=== PATIENT | female | born 1930 | race Caucasian/White ===

== ENCOUNTER 2016-11-21 10:03 | Emergency (ER) | payer MEDICARE, OTHER ==
[2016-11-21] MEDS ORDERED: Sodium Chloride 0.9% 10 ML Syringe FLUSH PRN (10:34)
[2016-11-21] MEDS ORDERED: Ondansetron 4 MG/2 ML SDV IVPUSH ONE (10:35)
[2016-11-21] MEDS ORDERED: Ondansetron 4 MG Tab.DIS PO ONE (10:46)
[2016-11-21] MEDS ORDERED: Meclizine 25 MG Tab PO ONE (11:09)
[2016-11-21 11:12] LABS: CHLORIDE,CL 104 mmol/L (98-107); SODIUM,NA 140 mmol/L (136-145)
--- NOTE | 2016-11-21 11:15 | EDM.PDOC ---
ED HPI GENERAL MEDICAL PROBLEM - General Chief Complaint: General Stated Complaint: Nausea, vomitting HTN Time Seen by Provider: 11/21/16 10:34 Source of Information: Reports: Patient History Limitations: Reports: No Limitations - History of Present Illness INITIAL COMMENTS - FREE TEXT/NARRATIVE: Patient brought in by EMS after having problems with vertigo and nausea after waking up this morning. Does not describe having similar problems in past. No recent changes in health other than having decreased appetite all day yesterday. Recalls that she had buzzing sound in left ear yesterday, but currently that has resolved. She admits to not eating as much as she usually does. She denies having any other problems yesterday, such as chills, fever, nausea, bowel changes, problems with urination, or URI complaints. Head rotation makes the dizziness feel worse. Had emesis once she came to the ER. Greenish in color, small in amount. Continues to deny having any other symptoms. Says her vertigo feels better at this point. She did take her BP at her apartment and noted it was more elevated than usual. - Related Data Allergies Allergy/AdvReac Type Severity Reaction Status Date / Time cerivastatin sodium Allergy Other Verified 11/21/16 10:34 [From [facility]] Penicillins Allergy unknown Verified 11/21/16 10:34 Sulfa (Sulfonamide Allergy Other Verified 11/21/16 10:34 Antibiotics) Home Meds: Home Meds Cholecalciferol (Vitamin D3) [Vitamin D3] 2,000 unit PO DAILY #0 02/17/14 [Rx] Hydroxychloroquine [Plaquenil] 200 mg PO DAILY #0 02/17/14 [Rx] Sertraline [Zoloft] 25 mg PO DAILY #0 02/17/14 [Rx] Albuterol/Ipratropium [DuoNeb 3.0-0.5 MG/3 ML] 3 ml PO TID 03/22/15 [History] Budesonide [Pulmicort] 0.5 mg IH BID #30 neb 03/22/15 [Rx] Levothyroxine Sodium [Levoxyl] 175 mcg PO DAILY 03/22/15 [History] Tolterodine [Detrol LA 24 Hr] 4 mg PO DAILY 03/22/15 [History] Aspirin 325 mg PO BID 11/21/16 [History] Meclizine [Antivert] 25 mg PO Q6H PRN #20 tablet 11/21/16 [Rx] Past Medical History HEENT History: Reports: Impaired Vision Other HEENT History: Wears glasses Cardiovascular History: Reports: Hypertension Respiratory History: Reports: COPD Gastrointestinal History: Reports: Other (See Below) Genitourinary History: Reports: Urinary Incontinence Musculoskeletal History: Reports: Back Pain, Chronic, Gout, Osteoarthritis, Osteoporosis Hematologic History: Reports: Blood Transfusion(s) - Past Surgical History HEENT Surgical History: Reports: Oral Surgery GI Surgical History: Reports: Appendectomy, Cholecystectomy, Colonoscopy, EGD, Hernia Repair/Other Female Surgical History: Reports: D&C, Salpingo-Oophorectomy, Tubal Ligation Social & Family History - Tobacco Use Smoking Status *Q: Former Smoker Used Tobacco, but Quit: Yes Month Tobacco Last Used: Second Hand Smoke Exposure: No - Caffeine Use Caffeine Use: Reports: Coffee - Alcohol Use Days Per Week of Alcohol Use: 0 Number of Drinks Per Day: 1 (Very occasional beer) Total Drinks Per Week: 0 - Recreational Drug Use Recreational Drug Use: No Drug Use in Last 12 Months: No Recreational Drug Last Use: 2 Cups of coffee per day and occasional soda - Living Situation & Occupation Living situation: Reports: , Alone Occupation: Other ED ROS GENERAL - Review of Systems Review Of Systems: See Below Constitutional: Reports: Decreased Appetite. Denies: Fever, Chills, Malaise, Weakness, Fatigue, Night Sweats, Diaphoresis HEENT: Reports: No Symptoms. Denies: Rhinitis, Throat Pain Respiratory: Reports: No Symptoms. Denies: Shortness of Breath, Cough Cardiovascular: Reports: Blood Pressure Problem, Dyspnea on Exertion (Has some baseline SOB with activity and this has not changed.), Lightheadedness. Denies : Chest Pain, Edema GI/Abdominal: Reports: Decreased Appetite, Nausea, Vomiting. Denies: Abdominal Pain, Black Stool, Bloody Stool, Constipation, Diarrhea, Hematemesis, Hematochezia : Reports: No Symptoms Musculoskeletal: Reports: No Symptoms (no acute changes) Skin: Reports: No Symptoms Neurological: Reports: Dizziness, Gait Disturbance (Dizzy with activity). Denies: Confusion, Headache, Numbness, Paresthesia, Syncope, Tingling, Trouble Speaking, Weakness Psychiatric: Reports: No Symptoms Hematologic/Lymphatic: Reports: No Symptoms ED EXAM, GENERAL - Physical Exam Exam: See Below Exam Limited By: No Limitations General Appearance: Alert, WD/WN, No Apparent Distress, Obese Eye Exam: Bilateral Eye: EOMI, PERRL, Other (absence of nystagmus) Ears: Normal External Exam, Normal Canal, Normal TMs, Hearing Loss (has hearing aid) Nose: Normal Inspection Throat/Mouth: Normal Inspection, Normal Lips, Normal Gums, Normal Oropharynx, Normal Voice, No Airway Compromise, Other (has dentures) Head: Atraumatic, Normocephalic Neck: Normal Inspection, Supple, Non-Tender, Full Range of Motion. No: Lymphadenopathy (L), Lymphadenopathy (R) Respiratory/Chest: No Respiratory Distress, Lungs Clear, Normal Breath Sounds, No Accessory Muscle Use, Chest Non-Tender Cardiovascular: Normal Peripheral Pulses, Regular Rate, Rhythm, No Edema, No Murmur Peripheral Pulses: 2+: Radial (L), Radial (R), Dorsalis Pedis (L), Dorsalis Pedis (R) GI/Abdominal: Normal Bowel Sounds, Soft, Non-Tender, No Distention (Female) Exam: Deferred Rectal (Female) Exam: Deferred Back Exam: Normal Inspection. No: CVA Tenderness (L), CVA Tenderness (R) Extremities: Normal Range of Motion, Non-Tender, Normal Capillary Refill, Pedal Edema (very mild, bilaterally) Neurological: Alert, Oriented, CN II-XII Intact, Normal Cognition, No Motor/ Sensory Deficits Psychiatric: Normal Affect, Normal Mood Skin Exam: Warm, Dry, Intact, Normal Color, No Rash Course - Vital Signs Last Recorded V/S: Last Vital Signs Temp 36.9 C 11/21/16 10:06 Pulse 68 11/21/16 11:55 Resp 18 11/21/16 11:55 BP 157/56 H 11/21/16 11:55 Pulse Ox 98 11/21/16 11:55 - Orders/Labs/Meds Orders: Active Orders 24 hr Category Date Time Status Sodium Chloride 0.9% [Saline Flush] Med 11/21/16 10:34 Active 10 ml FLUSH ASDIRECTED PRN Saline Lock Insert [OM.PC] Stat Oth 11/21/16 10:34 Ordered Medication Orders Sodium Chloride (Saline Flush) 10 ml FLUSH ASDIRECTED PRN PRN Reason: Keep Vein Open Labs: Laboratory Tests 11/21/16 11/21/16 11/21/16 Range/Units 10:34 10:55 11:05 WBC 6.4 (4.0-10.2) K/uL RBC 4.24 (3.77-5.09) M/uL Hgb 12.8 (11.7-15.5) g/dL Hct 38.1 (34.0-46.0) % MCV 89.9 (84.0-98.0) fL MCH 30.2 (28.2-33.3) pg MCHC 33.6 (31.7-36.0) g/dL RDW 12.9 (11.2-14.1) % Plt Count 261 D (150-350) K/uL Neut % (Auto) 66.3 (45.0-80.0) % Lymph % (Auto) 23.5 (10.0-50.0) % [place] % (Auto) 8.0 (2.0-14.0) % Eos % (Auto) 2.0 (0.0-5.0) % Baso % (Auto) 0.2 (0.0-2.0) % Neut # (Auto) 4.21 (1.40-7.00) K/uL Lymph # (Auto) 1.49 (0.50-3.50) K/uL [place] # (Auto) 0.51 (0.00-1.00) K/uL Eos # (Auto) 0.13 (0.00-0.50) K/uL Baso # (Auto) 0.01 (0.00-0.20) K/uL Sodium 140 (136-145) mmol/L Potassium 3.4 L (3.5-5.1) mmol/L Chloride 104 (98-107) mmol/L Carbon Dioxide 25.9 (21.0-32.0) mmol/L BUN 15 (7-18) mg/dL Creatinine 1.12 (0.51-1.17) mg/dL Est Cr Clr Drug Dosing TNP Estimated GFR (MDRD) 46 mL/min Glucose 149 H (74-106) mg/dL Calcium 8.6 (8.5-10.1) mg/dL Total Bilirubin 0.5 (0.2-1.0) mg/dL AST 18 (15-37) U/L ALT 14 (12-78) U/L Alkaline Phosphatase 54 (46-116) IU/L Total Protein 6.7 (6.4-8.2) g/dL Albumin 3.2 L (3.4-5.0) g/dL Specimen Type Urinblad Urine Color Yellow Urine Appearance Clear Urine pH 6.5 (5.0-9.0) Ur Specific [place] 1.020 (1.005-1.030) Urine Protein Negative (NEGATIVE) mg/dL Urine Glucose (UA) Negative (NEGATIVE) mg/dL Urine Ketones Negative (NEGATIVE) mg/dL Urine Occult Blood Trace-intact H (NEGATIVE) Urine Nitrite Negative (NEGATIVE) Urine Bilirubin Negative (NEGATIVE) Urine Urobilinogen 0.2 (0.2-1.0) E.U./dL Ur Leukocyte Esterase Negative (NEGATIVE) Urine RBC 0-5 /HPF Urine WBC 0-5 /HPF Ur Epithelial Cells Moderate H /LPF Urine Bacteria Rare (NONE TO FEW) /HPF Meds: Medications Generic Name Dose Route Start Last Admin Trade Name Freq PRN Reason Stop Dose Admin Sodium Chloride 10 ml 11/21/16 10:34 Saline Flush FLUSH ASDIRECTED PRN Keep Vein Open Discontinued Medications Generic Name Dose Route Start Last Admin Trade Name Freq PRN Reason Stop Dose Admin Meclizine HCl 25 mg 11/21/16 11:09 11/21/16 11:16 Antivert PO 11/21/16 11:10 25 mg ONETIME ONE Administration Ondansetron HCl 4 mg 11/21/16 10:35 Zofran IVPUSH 11/21/16 10:36 ONETIME ONE Ondansetron HCl 4 mg 11/21/16 10:46 11/21/16 10:51 Zofran Odt PO 11/21/16 10:47 4 mg ONETIME ONE Administration - Re-Assessments/Exams Free Text/Narrative Re-Assessment/Exam: 11/21/16 13:02 CBC/Chem/UA overall unremarkable. Small amount blood in UA, no white cells. Patient had significant improvement of symptoms while staying in ER. BP improved. She did sleep for awhile. Meclizine given. Able to ambulate well. Had much smaller amount of "spins" when turning her head. No unsteadiness noted. She feels safe going home. At this time suspect acute labrynthitis. Cannot rule out early viral syndrome symptom or other cause however. Patient continues to deny other complaints such as fever/shortness of breath/headache or other pain. Conservative plan at this time including continue Meclizine and observation for symptom changes/new symptoms. Patient knows she is to return to the ER if she has worsening problems. Numerous cautions reviewed prior to discharge. Patient discharged in much improved condition. Departure - Departure Time of Disposition: 12:48 Disposition: Home, Self-Care 01 Condition: Good Clinical Impression: HTN, Benign hypertension Acute labyrinthitis Qualifiers: Laterality: unspecified laterality Qualified Code(s): H83.09 - Labyrinthitis, unspecified ear Clinical Impression: (Ruled Out): Meniere disease - Discharge Information Prescriptions: Meclizine [Antivert] 25 mg PO Q6H PRN #20 tablet PRN Reason: Dizziness Instructions: Labyrinthitis, [id number] Referrals: [facility] [Primary Care Provider] - Forms: ED Department Discharge Additional Instructions: Take it easy today and tomorrow. Take Meclizine one tablet every 6 hours as needed for lightheadedness. Watch for changes and any new symptom development. Follow up for recheck if you have any worsening problems such as headache, shortness of breath. Follow up at clinic if light-headed feeling has not fully resolved within 3 days. - My Orders Last 24 Hours: My Active Orders 11/21/16 10:34 Sodium Chloride 0.9% [Saline Flush] 10 ml FLUSH ASDIRECTED PRN Saline Lock Insert [OM.PC] Stat - Assessment/Plan Last 24 Hours: My Active Orders 11/21/16 10:34 Sodium Chloride 0.9% [Saline Flush] 10 ml FLUSH ASDIRECTED PRN Saline Lock Insert [OM.PC] Stat
[2016-11-21] MEDS ORDERED: Potassium Chloride 10 MEQ Tab.ER PO ONE (12:58)
[2016-11-21 14:01] VITALS: BP 158/60
== END 2016-11-21 13:20 | disposition home or self-care (01) ==
LOC: LL.ED 10:03
DX: I10 Essential (primary) hypertension (principal); H83.09 Labyrinthitis, unspecified ear; M19.90 Unspecified osteoarthritis, unspecified site; M81.0 Age-related osteoporosis without current pathological fracture; J44.9 Chronic obstructive pulmonary disease, unspecified; Z88.0 Allergy status to penicillin; Z88.2 Allergy status to sulfonamides; Z88.8 Allergy status to other drugs, medicaments and biological substances; Z90.49 Acquired absence of other specified parts of digestive tract; Z79.82 Long term (current) use of aspirin; Z79.899 Other long term (current) drug therapy; Z90.89 Acquired absence of other organs; Z98.51 Tubal ligation status; Z87.891 Personal history of nicotine dependence
CPT/HCPCS: 36415; 80053; 81001; 85025; 99283; 99284; A9270

== ENCOUNTER 2018-03-12 14:49 | Inpatient (IN) | payer MEDICARE, OTHER ==
--- NOTE | 2018-03-12 15:27 | EDM.PDOC ---
ED HPI GENERAL MEDICAL PROBLEM - General Chief Complaint: General Stated Complaint: left sided chest pain,SOB Time Seen by Provider: 03/12/18 14:55 Source of Information: Reports: Patient, Family History Limitations: Reports: No Limitations - History of Present Illness INITIAL COMMENTS - FREE TEXT/NARRATIVE: Patient sent here from [facility] for evaluation of 6-8 week history of fatigue, low energy, shortness of breath, and intermittent left sided chest pain. No labs performed at clinic. EKG showed mild tachycardia of 108 with no obvious acute ST elevation or depression. Patient describes that pain as being in left side when present. Points to left lateral chest area as site of discomfort. Nothing specific triggers/improves pain when present. - Related Data Allergies Allergy/AdvReac Type Severity Reaction Status Date / Time cerivastatin sodium Allergy Other Verified 03/12/18 15:22 [From [employer]col] Dairy Products Allergy Other Verified 03/12/18 16:47 Penicillins Allergy unknown Verified 03/12/18 15:22 Sulfa (Sulfonamide Allergy Other Verified 03/12/18 15:22 Antibiotics) Home Meds: Home Meds Cholecalciferol (Vitamin D3) [Vitamin D3] 2,000 unit PO DAILY #0 02/17/14 [Rx] Hydroxychloroquine [Plaquenil] 200 mg PO DAILY #0 02/17/14 [Rx] Sertraline [Zoloft] 25 mg PO DAILY #0 02/17/14 [Rx] Budesonide [Pulmicort] 0.5 mg IH BID #30 neb 03/22/15 [Rx] Tolterodine [Detrol LA 24 Hr] 4 mg PO DAILY 03/22/15 [History] Levothyroxine Sodium [Synthroid] 150 mcg PO DAILY 01/18/18 [History] Albuterol Sulfate [Proair Respiclick] 2 puff IH Q4HR PRN 03/12/18 [History] Albuterol/Ipratropium [DuoNeb 3.0-0.5 MG/3 ML] 3 ml INH Q6HR PRN 03/12/18 [ History] Aspirin [Children's Aspirin] 81 mg PO DAILY 03/12/18 [History] Ipratropium/Albuterol Sulfate [Combivent Respimat Inhal [place]] 1 puff IH ASDIRECTED PRN 03/12/18 [History] Magnesium Oxide [Magnesium] 500 mg PO DAILY 03/12/18 [History] Past Medical History HEENT History: Reports: Impaired Vision Other HEENT History: Wears glasses Cardiovascular History: Reports: Hypertension Respiratory History: Reports: COPD Gastrointestinal History: Reports: Other (See Below) Genitourinary History: Reports: Urinary Incontinence Musculoskeletal History: Reports: Back Pain, Chronic, Gout, Osteoarthritis, Osteoporosis Psychiatric History: Reports: Depression Endocrine/Metabolic History: Reports: Hypothyroidism, Obesity/BMI 30+ Hematologic History: Reports: Blood Transfusion(s) - Past Surgical History HEENT Surgical History: Reports: Oral Surgery GI Surgical History: Reports: Appendectomy, Cholecystectomy, Colonoscopy, EGD, Hernia Repair/Other Female Surgical History: Reports: D&C, Salpingo-Oophorectomy, Tubal Ligation Social & Family History - Tobacco Use Smoking Status *Q: Former Smoker (quit over 50 years ago) - Caffeine Use Caffeine Use: Reports: Coffee - Living Situation & Occupation Living situation: Reports: , Alone Occupation: Other ED ROS GENERAL - Review of Systems Review Of Systems: See Below Constitutional: Reports: Weakness, Fatigue, Weight Loss. Denies: Fever, Chills , Malaise, Night Sweats, Diaphoresis, Decreased Appetite, Weight Gain HEENT: Reports: Glasses. Denies: Ear Pain, Eye Pain, Sinus Problem, Vision Change Respiratory: Reports: Shortness of Breath. Denies: Wheezing, Pleuritic Chest Pain, Cough, Sputum, Hemoptysis Cardiovascular: Reports: Chest Pain (left lateral chest), Dyspnea on Exertion, Edema. Denies: Lightheadedness, Orthopnea, Palpitations, Syncope GI/Abdominal: Reports: Diarrhea (this morning), Other (heartburn this morning, single emesis this morning). Denies: Abdominal Pain, Black Stool, Bloody Stool , Distension : Reports: Incontinence Musculoskeletal: Reports: No Symptoms (no change from baseline chronic pain) Skin: Reports: No Symptoms Neurological: Reports: Weakness (generalized). Denies: Confusion, Dizziness, Headache, Trouble Speaking, Change in Speech, Gait Disturbance Psychiatric: Reports: No Symptoms Hematologic/Lymphatic: Reports: No Symptoms ED EXAM, GENERAL - Physical Exam Exam: See Below Exam Limited By: No Limitations General Appearance: Alert, No Apparent Distress, Obese Eye Exam: Bilateral Eye: EOMI, PERRL Ears: Normal External Exam, Normal Canal Nose: No: Nasal Deformity, Nasal Swelling, Nasal Drainage Throat/Mouth: Normal Lips, Normal Voice, No Airway Compromise Head: Atraumatic, Normocephalic Neck: Normal Inspection, Supple, Non-Tender, Full Range of Motion Respiratory/Chest: No Respiratory Distress, No Accessory Muscle Use, Chest Non- Tender, Wheezing (mild, scattered). No: Crackles, Rales, Rhonchi Cardiovascular: Normal Peripheral Pulses, Regular Rate, Rhythm, No Murmur GI/Abdominal: Soft, Non-Tender, No Distention (Female) Exam: Deferred Rectal (Female) Exam: Deferred Back Exam: Normal Inspection Extremities: Normal Range of Motion, Pedal Edema. No: Mary's Sign, Leg Pain, Increased Warmth, Mottled, Pallor, Redness Neurological: Alert, Oriented, Normal Cognition, No Motor/Sensory Deficits Psychiatric: Normal Affect, Normal Mood Skin Exam: Warm, Dry, Intact, Normal Color EKG INTERPRETATION EKG Date: 03/12/18 Time: 14:58 Rhythm: NSR Rate (Beats/Min): 88 [place]: Normal P-Wave: Present QRS: Normal ST-T: Other (questionable ST depression lateral leads, 2, 3 however similar morphology noted on EKG from 2016) QT: Normal Comparison: No Change Course - Vital Signs Last Recorded V/S: Last Vital Signs Temp 36.7 C 03/12/18 16:11 Pulse 94 03/12/18 18:30 Resp 23 H 03/12/18 18:30 BP 142/54 H 03/12/18 18:30 Pulse Ox 94 L 03/12/18 18:30 - Orders/Labs/Meds Orders: Active Orders 24 hr Category Date Time Status Communication Order [RC] ROUTINE Care 03/12/18 15:41 Active EKG Documentation Completion [RC] ASDIRECTED Care 03/12/18 14:54 Active Chest 2V [CR] Stat Exams 03/12/18 15:27 Taken PE Chest [Ang Chest] [CT] Stat Exams 03/12/18 16:12 Taken CK W CKMB [CHEM] Stat Lab 03/12/18 20:34 Ordered TROPONIN I [CHEM] Stat Lab 03/12/18 20:33 Ordered UA W/MICROSCOPIC [URIN] Stat Lab 03/12/18 15:21 Ordered Labs: Laboratory Tests 01/09/2103/12/18 03/12/18 Range/Units 15:00 15:05 15:05 WBC 7.9 (4.0-10.2) K/uL RBC 4.09 (3.77-5.09) M/uL Hgb 12.6 (11.7-15.5) g/dL Hct 37.5 (34.0-46.0) % MCV 91.7 (84.0-98.0) fL MCH 30.8 (28.2-33.3) pg MCHC 33.6 (31.7-36.0) g/dL RDW 13.5 (11.2-14.1) % Plt Count 314 (150-350) K/uL Neut % (Auto) 77.0 (45.0-80.0) % Lymph % (Auto) 14.5 (10.0-50.0) % [place] % (Auto) 7.9 (2.0-14.0) % Eos % (Auto) 0.3 (0.0-5.0) % Baso % (Auto) 0.3 (0.0-2.0) % Neut # (Auto) 6.07 (1.40-7.00) K/uL Lymph # (Auto) 1.14 (0.50-3.50) K/uL [place] # (Auto) 0.62 (0.00-1.00) K/uL Eos # (Auto) 0.02 (0.00-0.50) K/uL Baso # (Auto) 0.02 (0.00-0.20) K/uL PT 11.4 (9.5-12.0) SEC INR 1.1 D-Dimer, Quantitative 449 H (0-400) ng/mL Sodium (136-145) mmol/L Potassium (3.5-5.1) mmol/L Chloride (98-107) mmol/L Carbon Dioxide (21.0-32.0) mmol/L BUN (7-18) mg/dL Creatinine (0.51-1.17) mg/dL Est Cr Clr Drug Dosing Estimated GFR (MDRD) mL/min Glucose (74-106) mg/dL Calcium (8.5-10.1) mg/dL Magnesium (1.8-2.4) mg/dL Total Bilirubin (0.2-1.0) mg/dL AST (15-37) U/L ALT (12-78) U/L Alkaline Phosphatase (46-116) IU/L Creatine Kinase (26-308) U/L Creatine Kinase Index (0.0-2.5) % CK-MB (CK-2) (0.00-3.60) ng/mL Troponin I (0.000-0.056) ng/mL NT-Pro-B Natriuret Pep (0-125) pg/mL Total Protein (6.4-8.2) g/dL Albumin (3.4-5.0) g/dL Vitamin D 25-Hydroxy (30-100) ng/mL TSH, Ultra Sensitive (0.358-3.740) mIU/mL 03/12/18 03/12/18 Range/Units 15:05 15:15 WBC (4.0-10.2) K/uL RBC (3.77-5.09) M/uL Hgb (11.7-15.5) g/dL Hct (34.0-46.0) % MCV (84.0-98.0) fL MCH (28.2-33.3) pg MCHC (31.7-36.0) g/dL RDW (11.2-14.1) % Plt Count (150-350) K/uL Neut % (Auto) (45.0-80.0) % Lymph % (Auto) (10.0-50.0) % [place] % (Auto) (2.0-14.0) % Eos % (Auto) (0.0-5.0) % Baso % (Auto) (0.0-2.0) % Neut # (Auto) (1.40-7.00) K/uL Lymph # (Auto) (0.50-3.50) K/uL [place] # (Auto) (0.00-1.00) K/uL Eos # (Auto) (0.00-0.50) K/uL Baso # (Auto) (0.00-0.20) K/uL PT (9.5-12.0) SEC INR D-Dimer, Quantitative (0-400) ng/mL Sodium 140 (136-145) mmol/L Potassium 4.0 (3.5-5.1) mmol/L Chloride 104 (98-107) mmol/L Carbon Dioxide 26.6 (21.0-32.0) mmol/L BUN 17 (7-18) mg/dL Creatinine 1.24 H (0.51-1.17) mg/dL Est Cr Clr Drug Dosing TNP Estimated GFR (MDRD) 41 mL/min Glucose 122 H (74-106) mg/dL Calcium 8.4 L (8.5-10.1) mg/dL Magnesium 1.3 L (1.8-2.4) mg/dL Total Bilirubin 0.2 (0.2-1.0) mg/dL AST 19 (15-37) U/L ALT 18 (12-78) U/L Alkaline Phosphatase 54 (46-116) IU/L Creatine Kinase 90 (26-308) U/L Creatine Kinase Index 1.2 (0.0-2.5) % CK-MB (CK-2) 1.10 (0.00-3.60) ng/mL Troponin I 0.001 (0.000-0.056) ng/mL NT-Pro-B Natriuret Pep 625 H (0-125) pg/mL Total Protein 6.7 (6.4-8.2) g/dL Albumin 3.2 L (3.4-5.0) g/dL Vitamin D 25-Hydroxy 54.4 (30-100) ng/mL TSH, Ultra Sensitive 0.264 L (0.358-3.740) mIU/mL Meds: Medications Discontinued Medications Generic Name Dose Route Start Last Admin Trade Name [facility] PRN Reason Stop Dose Admin Sodium Chloride 500 mls @ 250 mls/hr 03/12/18 16:13 03/12/18 17:12 Normal Saline IV 03/12/18 18:12 250 mls/hr ONETIME ONE Administration Iopamidol 100 ml 03/12/18 16:18 03/12/18 17:11 Isovue-370 (76%) IVPUSH 03/12/18 16:19 100 ml ONETIME ONE Administration Magnesium Sulfate/Dextrose 1 gm 03/12/18 16:13 03/12/18 16:52 Magnesium 1 Gm In D5w 100 Ml IV 03/12/18 16:14 1 gm NOW ONE Administration - Radiology Interpretation Free Text/Narrative:: Chest xray shows no acute changes. Hyperinflation/COPD present. Similar pattern left lower lung noted on previous chest xrays that Radiology feels reflects scarring. CT Results Date: 03/12/18 CT Results Time: 18:50 (No evidence of PE noted) - Re-Assessments/Exams Free Text/Narrative Re-Assessment/Exam: 03/12/18 15:58 Patient ambulated while waiting for lab work results. Able to walk once up and down garber while maintaining O2 sats on room air around 95%. However she was noted to become increasingly tachycardic with heart rate gradually reaching 139 and respiratory rate maxing around 40 bpm. Free Text/Narrative Re-Assessment/Exam: 03/12/18 20:14 No evidence of PE noted. Significant amount of time between study and results due to extensive technical difficulties getting films transmitted to [place] for Radiology review. Overall unremarkable workup except for mild elevation of BNP and DDimer, and low Mg. Glucose mildly elevated. TSH slightly low. Plan at this time is to admit. Will perform serial cardiac enzymes, telemetry. Will treat for CHF and see if activity tolerance improves. PT and OT to evaluate patient. Departure - Departure Time of Disposition: 20:36 Disposition: Admitted As Inpatient 68 Condition: Fair Clinical Impression: Hypomagnesemia, Muscle weakness Chest pain Qualifiers: Chest pain type: unspecified Qualified Code(s): R07.9 - Chest pain, unspecified - Discharge Information *PRESCRIPTION DRUG MONITORING PROGRAM REVIEWED*: Not Applicable *COPY OF PRESCRIPTION DRUG MONITORING REPORT IN PATIENT QUENTIN: Not Applicable Referrals: Arlette Hines PA-C [Primary Care Provider] - Forms: ED Department Discharge - Problem List & Annotations (1) Chest pain SNOMED Code(s): 10948860 Code(s): R07.9 - CHEST PAIN, UNSPECIFIED Status: Acute Priority: High Current Visit: Yes Annotation/Comment:: Intermittent left sided chest pain. Currently pain free. Pain present earlier this morning. No radiation of pain. No accompanying nausea/sweating. Is chronically SOB and that was unchanged. Plan is to perform serial cardiac enzymes, EKGs, and monitor patient on telemetry. Qualifiers: Chest pain type: unspecified Qualified Code(s): R07.9 - Chest pain, unspecified (2) CHF (congestive heart failure) SNOMED Code(s): 57401124 Code(s): I50.9 - HEART FAILURE, UNSPECIFIED Status: Chronic Priority: Medium Current Visit: Yes Annotation/Comment:: Mild elevation of proBNP noted. No previous diagnosis of CHF noted. Cardiac Echo 12/20 showed 66% ejection fraction. No pulmonary congestion noted on plain chest xray/PE study. Will add Lasix to treatment regimen and monitor for any change in activity tolerance (3) D-dimer, elevated SNOMED Code(s): 936815034 Code(s): R79.89 - OTHER SPECIFIED ABNORMAL FINDINGS OF BLOOD CHEMISTRY Status: Acute Priority: High Current Visit: Yes Annotation/Comment:: Mild elevation of DDimer. PE study ordered in ER. Negative for PE or other acute signficant changes per Radiology. (4) Impaired mobility and ADLs SNOMED Code(s): 478654212, 188272611, 372079159 Code(s): Z74.09 - OTHER REDUCED MOBILITY Status: Chronic Priority: High Current Visit: Yes Annotation/Comment:: 6-8 weeks of decline in ability to perform ADLs. Needs assistance with almost "everything" per son. Pt gets tired easily. Family member mentioned that patient recently experienced loss of a son and wonders if this is a reaction by the patient to son's . PT/OT to assess patient. May need to consider Swing Bed or residential care placement depending on patient's course. (5) Hypomagnesemia SNOMED Code(s): 277288193 Code(s): E83.42 - HYPOMAGNESEMIA Status: Acute Priority: High Current Visit: Yes Annotation/Comment:: Initiate Mg supplementation (6) Muscle weakness SNOMED Code(s): 93198163 Code(s): M62.81 - MUSCLE WEAKNESS (GENERALIZED) Status: Chronic Priority : Medium Current Visit: Yes Annotation/Comment:: PT/OT will be consulted for evaluation. (7) COPD, Mild chronic obstructive pulmonary disease SNOMED Code(s): 394888395 Code(s): J44.9 - CHRONIC OBSTRUCTIVE PULMONARY DISEASE, UNSPECIFIED Status : Chronic Priority: Medium Current Visit: No Annotation/Comment:: Currently appropriate on room air at this time. Has O2 at home but rarely uses it. Maintained 94-95% sats on room air when ambulating down garber today, however respiratory rate increased from 18 to 40, and heart rate elevated to 130s during this time. Denies acute changes such as cough/worsening respiratory status/mucus production/fever (8) Low back pain SNOMED Code(s): 028062576 Code(s): M54.5 - LOW BACK PAIN Status: Chronic Priority: Low Current Visit: No Annotation/Comment:: stable per patient at this time Qualifiers: Chronicity: chronic Back pain laterality: left Sciatica presence: with sciatica Sciatica laterality: sciatica of left side Qualified Code(s): M54.42 - Lumbago with sciatica, left side; G89.29 - Other chronic pain (9) Diabetes mellitus SNOMED Code(s): 24084908 Code(s): E11.9 - TYPE 2 DIABETES MELLITUS WITHOUT COMPLICATIONS Status: Chronic Priority: Medium Current Visit: No Annotation/Comment:: Diet- controlled with no current medical therapy. (10) HTN, Benign hypertension SNOMED Code(s): 49134818 Code(s): I10 - ESSENTIAL (PRIMARY) HYPERTENSION Status: Chronic Priority : Medium Current Visit: No Annotation/Comment:: Stable by history. BP appropriate at this time. (11) Osteoarthritis SNOMED Code(s): 053459782 Code(s): M19.90 - UNSPECIFIED OSTEOARTHRITIS, UNSPECIFIED SITE Status: Chronic Priority: High Current Visit: No Onset Date: 01/04/14 Annotation /Comment:: Chronic, no acute recent changes - Problem List Review Problem List Initiated/Reviewed/Updated: Yes - My Orders Last 24 Hours: My Active Orders 03/12/18 14:54 EKG Documentation Completion [RC] ASDIRECTED 03/12/18 15:21 UA W/MICROSCOPIC [URIN] Stat 03/12/18 15:27 Chest 2V [CR] Stat 03/12/18 15:41 Communication Order [RC] ROUTINE 03/12/18 16:12 PE Chest [Ang Chest] [CT] Stat 03/12/18 20:33 TROPONIN I [CHEM] Stat 03/12/18 20:34 CK W CKMB [CHEM] Stat - Assessment/Plan Admission H&P: Please use this note as an admission H&P Last 24 Hours: My Active Orders 03/12/18 14:54 EKG Documentation Completion [RC] ASDIRECTED 03/12/18 15:21 UA W/MICROSCOPIC [URIN] Stat 03/12/18 15:27 Chest 2V [CR] Stat 03/12/18 15:41 Communication Order [RC] ROUTINE 03/12/18 16:12 PE Chest [Ang Chest] [CT] Stat 03/12/18 20:33 TROPONIN I [CHEM] Stat 03/12/18 20:34 CK W CKMB [CHEM] Stat Assessment:: As above. Call placed to [facility] and patient reviewed with , hospitalist. It was agreed that there was no obvious cause for patient's decline over the past 6-8 weeks. Recommended stress test and updated cardiac echo to assess heart function given the tachycardia and SOB with ambulation. Also recommended conservative diuresis to see if that would prove beneficial. Cannot rule out behavioral/cognitive component. Plan: as above. Anticipate 3-4 day stay depending on patient's clinical course, with possible need for Swing Bed admission to address deconditioning.
[2018-03-12 16:01] LABS: CHLORIDE,CL 104 mmol/L (98-107); SODIUM,NA 140 mmol/L (136-145)
[2018-03-12] MEDS ORDERED: Sodium Chloride 0.9% 500 ML IV ONE (16:13)
[2018-03-12] MEDS ORDERED: Iopamidol 755 Mg/ML 100 ML Bottle IVPUSH ONE (16:18)
[2018-03-12] MEDS ORDERED: Ondansetron 4 MG Tab.DIS PO PRN (21:33)
[2018-03-12] MEDS ORDERED: Albuterol/Ipratropium 3.0-0.5 MG/3 ML Neb Soln INH PRN (21:37)
[2018-03-12] MEDS ORDERED: Albuterol 8 GM Inhaler INH PRN (21:37)
[2018-03-12] MEDS ORDERED: Albuterol/Ipratropium 4 GM Inhalation Spray INH PRN (21:37)
[2018-03-12] MEDS: Trospium 20 MG Tab PO SCH (23:11)
[2018-03-12] MEDS: Budesonide 0.5 MG/2 ML Neb Susp INH SCH (23:11)
[2018-03-13] MEDS ORDERED: Magnesium Oxide 400 MG Tab PO SCH (08:00)
[2018-03-13] MEDS ORDERED: Sertraline 25 MG Tab PO SCH (08:00)
[2018-03-13] MEDS: Enoxaparin 40 MG/0.4 ML Syringe SUBCUT SCH (08:01)
[2018-03-13] MEDS: Aspirin 81 MG Tab.Chew PO SCH (08:02)
[2018-03-13] MEDS: Hydroxychloroquine 200 MG Tab PO SCH (08:02)
[2018-03-13] MEDS: Levothyroxine 112 MCG Tab PO SCH (08:02)
[2018-03-13] MEDS: Cholecalciferol (Vitamin D3) 1,000 Unit Tab PO SCH (08:02)
[2018-03-13] MEDS: Trospium 20 MG Tab PO SCH ×2 (08:03→17:20)
[2018-03-13] MEDS: Furosemide 20 MG/2 ML VIAL IVPUSH SCH (08:03)
[2018-03-13] MEDS: Budesonide 0.5 MG/2 ML Neb Susp INH SCH ×2 (08:03→17:21)
[2018-03-13] MEDS: Magnesium Oxide 400 MG Tab PO SCH ×2 (08:03→17:21)
[2018-03-13] MEDS ORDERED: Sodium Chloride 0.9% 10 ML Syringe FLUSH PRN (08:04)
--- NOTE | 2018-03-13 16:08 | PCM.PN ---
- General Info Date of Service: 03/13/18 Admission Dx/Problem (Free Text): Patient admitted for evaluation of tachycardia/tachypnea with activity. Low magnesium. Complaint of intermittent left sided chest pain. CHF/COPD. Decreased in overall activity and participation in ADLs for 6+ weeks. Weight loss/poor appetite. Subjective Update: Patient says that overall she feels reasonably well as long as she is able to rest. Continues to have increased SOB/heart rate with any activity, including walking to bathroom. Has not had return of left sided chest pain today. Functional Status: Reports: Pain Controlled, Tolerating Diet, Ambulating, Urinating. Denies: New Symptoms - Review of Systems General: Reports: Weakness, Fatigue, Appetite (poor). Denies: Fever, Chills, Night Sweats HEENT: Denies: Dysphasia, Ear Pain, Headaches, Sinus Congestion, Sore Throat, Visual Changes Pulmonary: Reports: Shortness of Breath. Denies: Pleuritic Chest Pain, Cough, Sputum, Hemoptysis, Wheezing Cardiovascular: Reports: Dyspnea on Exertion. Denies: Chest Pain, Orthopnea, Edema, Lightheadedness Gastrointestinal: Reports: Decreased Appetite. Denies: No Symptoms, Abdominal Pain, Constipation, Diarrhea, Nausea, Vomiting Genitourinary: Reports: No Symptoms Musculoskeletal: Reports: No Symptoms (no acute changes from baseline osteoarthritis) Skin: Reports: No Symptoms Neurological: Reports: Difficulty Walking, Weakness. Denies: Confusion, Dizziness, Headache, Numbness, Syncope, Change in Speech, Gait Disturbance Psychiatric: Reports: Depression (patient admits to feeling sad some of the time ) - Patient Data Vitals - Most Recent: Last Vital Signs Temp 36.6 C 03/13/18 12:25 Pulse 101 H 03/13/18 12:25 Resp 20 03/13/18 12:25 BP 140/79 03/13/18 12:25 Pulse Ox 95 03/13/18 12:25 Weight - Most Recent: 77.474 kg I&O - Last 24 Hours: Intake & Output 03/13/18 03/13/18 03/13/18 06:59 14:59 22:59 Intake Total 150 220 Output Total 150 100 100 Balance 0 120 -100 Lab Results Last 24 Hours: Laboratory Results - last 24 hr 03/12/18 03/12/18 03/12/18 Range/Units 15:05 15:15 20:33 Sodium 140 (136-145) mmol/L Potassium 4.0 (3.5-5.1) mmol/L Chloride 104 (98-107) mmol/L Carbon Dioxide 26.6 (21.0-32.0) mmol/L BUN 17 (7-18) mg/dL Creatinine 1.24 H (0.51-1.17) mg/dL Est Cr Clr Drug Dosing TNP Estimated GFR (MDRD) 41 mL/min Glucose 122 H (74-106) mg/dL POC Glucose (65-110) mg/dl Calcium 8.4 L (8.5-10.1) mg/dL Magnesium 1.3 L (1.8-2.4) mg/dL Total Bilirubin 0.2 (0.2-1.0) mg/dL AST 19 (15-37) U/L ALT 18 (12-78) U/L Alkaline Phosphatase 54 (46-116) IU/L Creatine Kinase 90 56 (26-308) U/L Creatine Kinase Index 1.2 1.8 (0.0-2.5) % CK-MB (CK-2) 1.10 1.00 (0.00-3.60) ng/mL Troponin I 0.001 0.001 (0.000-0.056) ng/mL NT-Pro-B Natriuret Pep 625 H (0-125) pg/mL Total Protein 6.7 (6.4-8.2) g/dL Albumin 3.2 L (3.4-5.0) g/dL Vitamin D 25-Hydroxy 54.4 (30-100) ng/mL TSH, Ultra Sensitive 0.264 L (0.358-3.740) mIU/mL Specimen Type Urine Color Urine Appearance Urine pH (5.0-9.0) Ur Specific [place] (1.005-1.030) Urine Protein (NEGATIVE) mg/dL Urine Glucose (UA) (NEGATIVE) mg/dL Urine Ketones (NEGATIVE) mg/dL Urine Occult Blood (NEGATIVE) Urine Nitrite (NEGATIVE) Urine Bilirubin (NEGATIVE) Urine Urobilinogen (0.2-1.0) E.U./dL Ur Leukocyte Esterase (NEGATIVE) Urine RBC /HPF Urine WBC /HPF Ur Epithelial Cells /LPF Urine Bacteria (NONE TO FEW) /HPF 03/13/18 03/13/18 03/13/18 Range/Units 05:58 07:20 07:24 Sodium (136-145) mmol/L Potassium (3.5-5.1) mmol/L Chloride (98-107) mmol/L Carbon Dioxide (21.0-32.0) mmol/L BUN (7-18) mg/dL Creatinine (0.51-1.17) mg/dL Est Cr Clr Drug Dosing Estimated GFR (MDRD) mL/min Glucose (74-106) mg/dL POC Glucose 87 (65-110) mg/dl Calcium (8.5-10.1) mg/dL Magnesium 1.8 (1.8-2.4) mg/dL Total Bilirubin (0.2-1.0) mg/dL AST (15-37) U/L ALT (12-78) U/L Alkaline Phosphatase (46-116) IU/L Creatine Kinase 59 (26-308) U/L Creatine Kinase Index 1.5 (0.0-2.5) % CK-MB (CK-2) 0.90 (0.00-3.60) ng/mL Troponin I 0.011 (0.000-0.056) ng/mL NT-Pro-B Natriuret Pep 807 H (0-125) pg/mL Total Protein (6.4-8.2) g/dL Albumin (3.4-5.0) g/dL Vitamin D 25-Hydroxy (30-100) ng/mL TSH, Ultra Sensitive (0.358-3.740) mIU/mL Specimen Type Urinblad Urine Color Yellow Urine Appearance Clear Urine pH 6.5 (5.0-9.0) Ur Specific [place] 1.015 (1.005-1.030) Urine Protein Negative (NEGATIVE) mg/dL Urine Glucose (UA) Negative (NEGATIVE) mg/dL Urine Ketones Negative (NEGATIVE) mg/dL Urine Occult Blood Small H (NEGATIVE) Urine Nitrite Negative (NEGATIVE) Urine Bilirubin Negative (NEGATIVE) Urine Urobilinogen 0.2 (0.2-1.0) E.U./dL Ur Leukocyte Esterase Negative (NEGATIVE) Urine RBC 10-20 H /HPF Urine WBC 0-5 /HPF Ur Epithelial Cells Few /LPF Urine Bacteria Rare (NONE TO FEW) /HPF Med Orders - Current: Current Medications Albuterol (Ventolin Hfa) 0 gm INH Q4HR PRN PRN Reason: Cough Albuterol/Ipratropium (Duoneb 3.0-0.5 Mg/3 Ml) 3 ml INH Q6HR PRN PRN Reason: Shortness of Breath Last Admin: 03/13/18 08:03 Dose: 3 ml Albuterol/Ipratropium (Combivent Respimat) 0 gm INH Q4H PRN PRN Reason: Shortness of Breath Aspirin (Aspirin) 81 mg PO DAILY [facility] Last Admin: 03/13/18 08:02 Dose: 81 mg Budesonide (Pulmicort) 0.5 mg INH BID [facility] Last Admin: 03/13/18 08:03 Dose: 0.5 mg Cholecalciferol (Vitamin D3) 2,000 units PO DAILY [facility] Last Admin: 03/13/18 08:02 Dose: 2,000 units Enoxaparin Sodium (Lovenox) 40 mg SUBCUT DAILY [facility] Last Admin: 03/13/18 08:01 Dose: 40 mg Furosemide (Lasix) 20 mg IVPUSH DAILY [facility] Last Admin: 03/13/18 08:03 Dose: 20 mg Hydroxychloroquine Sulfate (Plaquenil) 200 mg PO DAILY [facility] Last Admin: 03/13/18 08:02 Dose: 200 mg Levothyroxine Sodium (Levothyroxine) 112 mcg PO ACBREAKFAST [facility] Last Admin: 03/13/18 08:02 Dose: 112 mcg Magnesium Oxide (Magnesium Oxide) 400 mg PO BID [facility] Last Admin: 03/13/18 08:03 Dose: 400 mg Ondansetron HCl (Zofran Odt) 4 mg PO Q4H PRN PRN Reason: Nausea/Vomiting Sertraline HCl (Zoloft) 25 mg PO DAILY [facility] Last Admin: 03/13/18 08:01 Dose: 25 mg Sodium Chloride (Saline Flush) 10 ml FLUSH ASDIRECTED PRN PRN Reason: Keep Vein Open Sodium Chloride (Saline Flush) 10 ml FLUSH Q12HR [facility] Trospium (Sanctura) 20 mg PO BID [facility] Last Admin: 03/13/18 08:03 Dose: 20 mg Discontinued Medications Sodium Chloride (Normal Saline) 500 mls @ 250 mls/hr IV ONETIME ONE Stop: 03/12/18 18:12 Last Admin: 03/12/18 17:12 Dose: 250 mls/hr Iopamidol (Isovue-370 (76%)) 100 ml IVPUSH ONETIME ONE Stop: 03/12/18 16:19 Last Admin: 03/12/18 17:11 Dose: 100 ml Magnesium Oxide (Magnesium Oxide) 500 mg PO DAILY [facility] Magnesium Sulfate/Dextrose (Magnesium 1 Gm In D5w 100 Ml) 1 gm IV NOW ONE Stop: 03/12/18 16:14 Last Admin: 03/12/18 16:52 Dose: 1 gm - Exam General: Alert, Oriented, Cooperative, No Acute Distress HEENT: Pupils Equal, Pupils Reactive, EOMI, Mucous Membr. Moist/[place] Neck: Supple Lungs: Clear to Auscultation, Normal Respiratory Effort Cardiovascular: Regular Rate, Regular Rhythm GI/Abdominal Exam: Normal Bowel Sounds, Soft, Non-Tender, No Distention (Female) Exam: Deferred Back Exam: Normal Inspection Extremities: Normal Range of Motion, Non-Tender. No: Increased Warmth, Mottled , Pallor, Redness Peripheral Pulses: 2+: Radial (L), Radial (R) Skin: Warm, Dry Neurological: No New Focal Deficit Psy/Mental Status: Alert, Normal Affect, Normal Mood EKG INTERPRETATION EKG Date: 03/13/18 Time: 07:23 Rhythm: NSR Rate (Beats/Min): 85 [place]: Normal P-Wave: Present QRS: Normal ST-T: Other (flattening of [place] note lateral leads) QT: Normal Comparison: Change From Previous EKG (questionable ST depression noted on yesterday's EKG no longer present.) - Problem List & Annotations (1) Chest pain SNOMED Code(s): 37695103 Code(s): R07.9 - CHEST PAIN, UNSPECIFIED Status: Acute Priority: High Current Visit: Yes Qualifiers: Chest pain type: unspecified Annotation/Comment:: Intermittent left sided chest pain. Currently pain free. No radiation of pain when present. Serial Troponin/CK-MB unremarkable. Cardiac echo scheduled for today. Will need to be scheduled for stress test. (2) CHF (congestive heart failure) SNOMED Code(s): 42122986 Code(s): I50.9 - HEART FAILURE, UNSPECIFIED Status: Chronic Priority: Medium Current Visit: Yes Annotation/Comment:: Mild elevation of proBNP noted. No previous diagnosis of CHF noted. Cardiac Echo 12/20 showed 66% ejection fraction. No pulmonary congestion noted on plain chest xray/PE study. Lasix added to treatment regimen and monitor for any change in activity tolerance. Cardiac echo scheduled for today. Lung sounds improved since addition of lasix. (3) D-dimer, elevated SNOMED Code(s): 084459857 Code(s): R79.89 - OTHER SPECIFIED ABNORMAL FINDINGS OF BLOOD CHEMISTRY Status: Acute Priority: High Current Visit: Yes Annotation/Comment:: Mild elevation of DDimer. PE study ordered in ER. Negative for PE or other acute signficant changes per Radiology. (4) Impaired mobility and ADLs SNOMED Code(s): 653705699, 134232006, 663164889 Code(s): Z74.09 - OTHER REDUCED MOBILITY Status: Chronic Priority: High Current Visit: Yes Annotation/Comment:: 6-8 weeks of decline in ability to perform ADLs. Needs assistance with almost "everything" per son. Pt gets tired easily. Family member mentioned that patient recently experienced loss of a son and wonders if this is a reaction by the patient to son's . Patient admits to feeling depressed at times and agreed that it may be contributing to her decline in interest to eat and participate in activities. PT and OT working with patient. Recommend continued PT/OT after discharge. (5) Hypomagnesemia SNOMED Code(s): 466297512 Code(s): E83.42 - HYPOMAGNESEMIA Status: Acute Priority: High Current Visit: Yes Annotation/Comment:: Initiated Mg supplementation. Level has improved. (6) Muscle weakness SNOMED Code(s): 41009168 Code(s): M62.81 - MUSCLE WEAKNESS (GENERALIZED) Status: Chronic Priority : Medium Current Visit: Yes Annotation/Comment:: PT/OT will be consulted for evaluation. Suspect patient's lack of activity at home is large contributing factor. (7) COPD, Mild chronic obstructive pulmonary disease SNOMED Code(s): 723929998 Code(s): J44.9 - CHRONIC OBSTRUCTIVE PULMONARY DISEASE, UNSPECIFIED Status : Chronic Priority: Medium Current Visit: No Annotation/Comment:: Currently appropriate on room air at this time. Has O2 at home but rarely uses it. 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 Denied acute changes such as cough/worsening respiratory status/mucus production/fever (8) Low back pain SNOMED Code(s): 256050618 Code(s): M54.5 - LOW BACK PAIN Status: Chronic Priority: Low Current Visit: No Qualifiers: Chronicity: chronic Back pain laterality: left Sciatica presence: with sciatica Sciatica laterality: sciatica of left side Qualified Code(s): M54.42 - Lumbago with sciatica, left side; G89.29 - Other chronic pain Annotation/Comment:: stable per patient at this time (9) Diabetes mellitus SNOMED Code(s): 85355390 Code(s): E11.9 - TYPE 2 DIABETES MELLITUS WITHOUT COMPLICATIONS Status: Chronic Priority: Medium Current Visit: No Annotation/Comment:: Diet- controlled with no current medical therapy. (10) HTN, Benign hypertension SNOMED Code(s): 98307158 Code(s): I10 - ESSENTIAL (PRIMARY) HYPERTENSION Status: Chronic Priority : Medium Current Visit: No Annotation/Comment:: Stable by history. BP appropriate at this time. (11) Osteoarthritis SNOMED Code(s): 777160194 Code(s): M19.90 - UNSPECIFIED OSTEOARTHRITIS, UNSPECIFIED SITE Status: Chronic Priority: High Current Visit: No Onset Date: 01/04/14 Annotation /Comment:: Chronic, no acute recent changes (12) Chronic kidney disease stage 2 SNOMED Code(s): 865641382 Code(s): N18.2 - CHRONIC KIDNEY DISEASE, STAGE 2 (MILD) Status: Chronic Priority: Low Current Visit: No Annotation/Comment:: Observe for changes. Lasix added cautiously due to patient's history. Listed as stage 4 by Richards. (13) Variable compliance with medication therapy SNOMED Code(s): 259074898 Code(s): Z91.14 - PATIENT'S OTHER NONCOMPLIANCE WITH MEDICATION REGIMEN Status: Chronic Priority: Low Current Visit: No Annotation/Comment:: Patient has had questionable compliance in past with taking medications. (14) Depression SNOMED Code(s): 09389414 Code(s): F32.9 - MAJOR DEPRESSIVE DISORDER, SINGLE EPISODE, UNSPECIFIED Status: Chronic Priority: Medium Current Visit: Yes Qualifiers: Depression Type: unspecified Qualified Code(s): F32.9 - Major depressive disorder, single episode, unspecified Annotation/Comment:: Has experienced worsening depression since of son. Similar reaction when . Noted by family to "give up". Reflected by poor eating/weight loss/loss of interest in activity. Will increase Zoloft dose. Recommend follow up with psych that has experience with geriatric population. - Problem List Review Problem List Initiated/Reviewed/Updated: Yes - My Orders Last 24 Hours: My Active Orders 03/12/18 15:27 Chest 2V [CR] Stat 03/12/18 15:41 Communication Order [RC] ROUTINE 03/12/18 16:12 PE Chest [Ang Chest] [CT] Stat 03/12/18 21:33 Patient Status [ADT] Routine Blood Glucose Check, Bedside [RC] 07,17 Height and Weight [RC] DAILY May Shower [RC] ASDIRECTED Oxygen Therapy [RC] PRN Up With Assistance [RC] ASDIRECTED VTE/DVT Education [RC] PER UNIT ROUTINE Vital Signs [RC] Q6HR OT Evaluation and Treatment [CONS] Routine PT Evaluation and Treatment [CONS] Routine Ondansetron [Zofran ODT] 4 mg PO Q4H PRN Resuscitation Status Routine 03/12/18 21:35 Cardiac Monitoring [RC] Q2HR Intake and Output [RC] 06,18 Pulse Oximetry [RC] PRN Antiembolic Hose [OM.PC] Per Unit Routine 03/12/18 21:37 Albuterol [Ventolin HFA] 0 gm INH Q4HR PRN Albuterol/Ipratropium [Combivent Respimat] 0 gm INH Q4H PRN Albuterol/Ipratropium [DuoNeb 3.0-0.5 MG/3 ML] 3 ml INH Q6HR PRN 03/12/18 21:45 Budesonide [Pulmicort] 0.5 mg INH BID 03/12/18 22:00 Trospium [Sanctura] 20 mg PO BID 03/13/18 07:30 Levothyroxine 112 mcg PO ACBREAKFAST 03/13/18 08:00 Aspirin 81 mg PO DAILY Cholecalciferol (Vitamin D3) [Vitamin D3] 2,000 units PO DAILY Enoxaparin [Lovenox] 40 mg SUBCUT DAILY Furosemide [Lasix] 20 mg IVPUSH DAILY Hydroxychloroquine [Plaquenil] 200 mg PO DAILY Magnesium Oxide 400 mg PO BID Sertraline [Zoloft] 25 mg PO DAILY 03/13/18 08:04 Sodium Chloride 0.9% [Saline Flush] 10 ml FLUSH ASDIRECTED PRN 03/13/18 10:19 Consult to Dietary [Consult to Plasma Specialist] [CONS] Routine 03/13/18 15:17 Ambulate [RC] PER UNIT ROUTINE 03/13/18 15:47 Echo Comp wo Cont [US] Routine 03/13/18 20:00 Sodium Chloride 0.9% [Saline Flush] 10 ml FLUSH Q12HR 03/13/18 Breakfast [place] [employer] Diet [DIET] 03/14/18 05:11 COMPREHENSIVE METABOLIC PN,CMP [CHEM] AM DD [D-DIMER QUANTITATIVE] [COAG] AM GLYCOSYLATED HEMOGLOBIN,HGBA1C [CHEM] Routine MAGNESIUM [CHEM] AM 03/14/18 05:15 CBC WITH AUTO DIFF [HEME] AM - Assessment Assessment:: as above - Plan Plan:: as above. Anticipate 1-2 additional days of inpatient care while patient's multiple medical problems are evaluated as to how they may be contributing to patient's decline. Patient and family may need to consider long term facility placement if patient is not able to take active interest in self care/ ADLs or is physically unable to perform self care safely.
[2018-03-13] MEDS: Sodium Chloride 0.9% 10 ML Syringe FLUSH SCH (19:24)
[2018-03-14 07:26] LABS: HEMOGLOBIN A1C 5.4 % (4.3-5.7)
[2018-03-14] MEDS ORDERED: Sertraline 25 MG Tab PO SCH (08:00)
[2018-03-14] MEDS: Trospium 20 MG Tab PO SCH ×2 (08:06→18:06)
[2018-03-14] MEDS: Cholecalciferol (Vitamin D3) 1,000 Unit Tab PO SCH (08:06)
[2018-03-14] MEDS: Levothyroxine 112 MCG Tab PO SCH (08:07)
[2018-03-14] MEDS: Hydroxychloroquine 200 MG Tab PO SCH (08:07)
[2018-03-14] MEDS: Magnesium Oxide 400 MG Tab PO SCH ×2 (08:07→18:06)
[2018-03-14] MEDS: Aspirin 81 MG Tab.Chew PO SCH (08:08)
[2018-03-14] MEDS: Enoxaparin 40 MG/0.4 ML Syringe SUBCUT SCH (08:08)
[2018-03-14] MEDS: Sodium Chloride 0.9% 10 ML Syringe FLUSH SCH ×2 (08:11→21:02)
[2018-03-14] MEDS: Budesonide 0.5 MG/2 ML Neb Susp INH SCH ×2 (08:11→18:07)
[2018-03-14] MEDS: Furosemide 20 MG/2 ML VIAL IVPUSH SCH ×2 (08:12→18:08)
--- NOTE | 2018-03-14 09:08 | PCM.PN ---
- General Info Date of Service: 03/14/18 Admission Dx/Problem (Free Text): 1. Tachycardia 2. COPD 3. D Dimer elevation 4. CHF Functional Status: Reports: Pain Controlled, Tolerating Diet, Ambulating, Urinating, New Symptoms. Denies: Incentive Spirometry (Start today) Pain Score: 0 - Review of Systems General: Reports: Weakness (Slowly improving), Fatigue (Slowly improving). Denies: Fever, Malaise, Chills, Night Sweats, Appetite (Adequate) HEENT: Reports: No Symptoms. Denies: Ear Pain, Eye Pain, Headaches, Post Nasal Drip, Sinus Congestion, Sore Throat, Rhinitis, Visual Changes Pulmonary: Reports: Shortness of Breath (Improving), Cough (Very occasional). Denies: Pleuritic Chest Pain, Sputum, Hemoptysis, Wheezing Cardiovascular: Reports: Palpitations, Dyspnea on Exertion. Denies: Chest Pain , Orthopnea, PND, Edema, Lightheadedness Gastrointestinal: Reports: Constipation (Borderline with no bowel movement to this point and patient not wanting any medications). Denies: Abdominal Pain, Decreased Appetite, Diarrhea, Difficulty Swallowing, Flatus, Hematochezia, Melena, Nausea Genitourinary: Reports: No Symptoms. Denies: Dysuria, Frequency, Burning, Urgency, Hematuria, Retention, Flank Pain Musculoskeletal: Reports: Neck Pain (Occasional nonspecific right-sided "pulling " with no true pain) Skin: Reports: No Symptoms. Denies: Diaphoresis Neurological: Reports: Weakness (Slowly improving). Denies: Confusion, Dizziness, Headache, Numbness, Paresthesia, Tingling Psychiatric: Reports: Depression (Stable), Anxiety (Stable). Denies: Agitation , Hallucinations - Patient Data Vitals - Most Recent: Last Vital Signs Temp 36.7 C 03/14/18 06:00 Pulse 76 03/14/18 06:00 Resp 18 03/14/18 06:00 BP 143/63 H 03/14/18 06:00 Pulse Ox 96 03/14/18 06:00 Vital Signs - 24 hr 03/13/18 03/13/18 03/14/18 12:25 17:00 00:00 Temperature [ 36.6 C 36.6 C 37.1 C Temporal] Pulse, 101 H 91 78 Peripheral [ Right Pulse Oximetry] Respiratory 20 18 18 Rate Blood Pressure 150/61 H [Left Upper Arm ] Blood Pressure 140/79 148/92 H [Right Lower Arm] Blood Pressure [Right Upper Arm] O2 Sat by Pulse 95 98 95 Oximetry 03/14/18 06:00 Temperature [ 36.7 C Temporal] Pulse, 76 Peripheral [ Right Pulse Oximetry] Respiratory 18 Rate Blood Pressure [Left Upper Arm ] Blood Pressure [Right Lower Arm] Blood Pressure 143/63 H [Right Upper Arm] O2 Sat by Pulse 96 Oximetry Weight - Most Recent: 77.474 kg I&O - Last 24 Hours: Intake & Output 03/13/18 03/14/18 03/14/18 22:59 06:59 14:59 Intake Total 360 50 Output Total 100 200 Balance 260 -150 Imaging Impressions - Last 24 Hours: [employer] Advisor shows normal sinus rhythm in the 70s with occasional mild sinus arrhythmia, however tachycardia in the 130s with ambulation. Lab Results Last 24 Hours: Laboratory Results - last 24 hr 03/13/18 03/14/18 03/14/18 Range/Units 17:00 06:55 06:55 WBC 5.5 (4.0-10.2) K/uL RBC 3.51 L (3.77-5.09) M/uL Hgb 10.9 L D (11.7-15.5) g/dL Hct 32.4 L (34.0-46.0) % MCV 92.3 (84.0-98.0) fL MCH 31.1 (28.2-33.3) pg MCHC 33.6 (31.7-36.0) g/dL RDW 14.1 (11.2-14.1) % Plt Count 288 (150-350) K/uL Neut % (Auto) 46.0 (45.0-80.0) % Lymph % (Auto) 38.8 (10.0-50.0) % Morgan % (Auto) 12.5 (2.0-14.0) % Eos % (Auto) 2.2 (0.0-5.0) % Baso % (Auto) 0.5 (0.0-2.0) % Neut # (Auto) 2.54 (1.40-7.00) K/uL Lymph # (Auto) 2.14 (0.50-3.50) K/uL Morgan # (Auto) 0.69 (0.00-1.00) K/uL Eos # (Auto) 0.12 (0.00-0.50) K/uL Baso # (Auto) 0.03 (0.00-0.20) K/uL D-Dimer, Quantitative (0-400) ng/mL Sodium 143 (136-145) mmol/L Potassium 3.7 (3.5-5.1) mmol/L Chloride 106 (98-107) mmol/L Carbon Dioxide 28.2 (21.0-32.0) mmol/L BUN 15 (7-18) mg/dL Creatinine 1.24 H (0.51-1.17) mg/dL Est Cr Clr Drug Dosing 23.82 mL/min Estimated GFR (MDRD) 41 mL/min Glucose 82 (74-106) mg/dL POC Glucose 100 (65-110) mg/dl Hemoglobin A1c (4.3-5.7) % Calcium 8.1 L (8.5-10.1) mg/dL Magnesium 1.8 (1.8-2.4) mg/dL Total Bilirubin 0.2 (0.2-1.0) mg/dL AST 11 L (15-37) U/L ALT 13 (12-78) U/L Alkaline Phosphatase 42 L (46-116) IU/L Total Protein 5.5 L (6.4-8.2) g/dL Albumin 2.6 L (3.4-5.0) g/dL 03/14/18 03/14/18 03/14/18 Range/Units 06:55 06:55 07:38 WBC (4.0-10.2) K/uL RBC (3.77-5.09) M/uL Hgb (11.7-15.5) g/dL Hct (34.0-46.0) % MCV (84.0-98.0) fL MCH (28.2-33.3) pg MCHC (31.7-36.0) g/dL RDW (11.2-14.1) % Plt Count (150-350) K/uL Neut % (Auto) (45.0-80.0) % Lymph % (Auto) (10.0-50.0) % Morgan % (Auto) (2.0-14.0) % Eos % (Auto) (0.0-5.0) % Baso % (Auto) (0.0-2.0) % Neut # (Auto) (1.40-7.00) K/uL Lymph # (Auto) (0.50-3.50) K/uL Morgan # (Auto) (0.00-1.00) K/uL Eos # (Auto) (0.00-0.50) K/uL Baso # (Auto) (0.00-0.20) K/uL D-Dimer, Quantitative 173 (0-400) ng/mL Sodium (136-145) mmol/L Potassium (3.5-5.1) mmol/L Chloride (98-107) mmol/L Carbon Dioxide (21.0-32.0) mmol/L BUN (7-18) mg/dL Creatinine (0.51-1.17) mg/dL Est Cr Clr Drug Dosing mL/min Estimated GFR (MDRD) mL/min Glucose (74-106) mg/dL POC Glucose 90 (65-110) mg/dl Hemoglobin A1c 5.4 (4.3-5.7) % Calcium (8.5-10.1) mg/dL Magnesium (1.8-2.4) mg/dL Total Bilirubin (0.2-1.0) mg/dL AST (15-37) U/L ALT (12-78) U/L Alkaline Phosphatase (46-116) IU/L Total Protein (6.4-8.2) g/dL Albumin (3.4-5.0) g/dL Jarek Results Last 24 Hours: None Med Orders - Current: Current Medications Albuterol (Ventolin Hfa) 0 gm INH Q4HR PRN PRN Reason: Cough Albuterol/Ipratropium (Duoneb 3.0-0.5 Mg/3 Ml) 3 ml INH Q6HR PRN PRN Reason: Shortness of Breath Last Admin: 03/13/18 08:03 Dose: 3 ml Albuterol/Ipratropium (Combivent Respimat) 0 gm INH Q4H PRN PRN Reason: Shortness of Breath Aspirin (Aspirin) 81 mg PO DAILY [facility]U Last Admin: 03/14/18 08:08 Dose: 81 mg Budesonide (Pulmicort) 0.5 mg INH BID [facility] Last Admin: 03/14/18 08:11 Dose: 0.5 mg Cholecalciferol (Vitamin D3) 2,000 units PO DAILY [facility] Last Admin: 03/14/18 08:06 Dose: 2,000 units Enoxaparin Sodium (Lovenox) 40 mg SUBCUT DAILY [facility] Last Admin: 03/14/18 08:08 Dose: 40 mg Furosemide (Lasix) 20 mg IVPUSH DAILY [facility] Last Admin: 03/14/18 08:12 Dose: 20 mg Hydroxychloroquine Sulfate (Plaquenil) 200 mg PO DAILY [facility] Last Admin: 03/14/18 08:07 Dose: 200 mg Levothyroxine Sodium (Levothyroxine) 112 mcg PO ACBREAKFAST [facility] Last Admin: 03/14/18 08:07 Dose: 112 mcg Magnesium Oxide (Magnesium Oxide) 400 mg PO BID [facility] Last Admin: 03/14/18 08:07 Dose: 400 mg Ondansetron HCl (Zofran Odt) 4 mg PO Q4H PRN PRN Reason: Nausea/Vomiting Sertraline HCl (Zoloft) 50 mg PO DAILY [facility] Last Admin: 03/14/18 08:12 Dose: 50 mg Sodium Chloride (Saline Flush) 10 ml FLUSH ASDIRECTED PRN PRN Reason: Keep Vein Open Sodium Chloride (Saline Flush) 10 ml FLUSH Q12HR [facility] Last Admin: 03/14/18 08:11 Dose: 10 ml Trospium (Sanctura) 20 mg PO BID [facility] Last Admin: 03/14/18 08:06 Dose: 20 mg Discontinued Medications Sodium Chloride (Normal Saline) 500 mls @ 250 mls/hr IV ONETIME ONE Stop: 03/12/18 18:12 Last Admin: 03/12/18 17:12 Dose: 250 mls/hr Iopamidol (Isovue-370 (76%)) 100 ml IVPUSH ONETIME ONE Stop: 03/12/18 16:19 Last Admin: 03/12/18 17:11 Dose: 100 ml Magnesium Oxide (Magnesium Oxide) 500 mg PO DAILY [facility] Magnesium Sulfate/Dextrose (Magnesium 1 Gm In D5w 100 Ml) 1 gm IV NOW ONE Stop: 03/12/18 16:14 Last Admin: 03/12/18 16:52 Dose: 1 gm Sertraline HCl (Zoloft) 25 mg PO DAILY [facility] Last Admin: 03/13/18 08:01 Dose: 25 mg - Exam Quality Assessment: DVT Prophylaxis (Lovenox). No: Supplemental Oxygen, Central Line/PICC, Urine Catheter, Skin Breakdown, Restraints General: Alert, Oriented, Cooperative, No Acute Distress HEENT: Pupils Equal, Pupils Reactive, EOMI, Mucous Membr. Moist/[place] Neck: Supple, Trachea Midline, No JVD, No Thyromegaly, Carotid Bruit (Mild bilateral carotid bruits). No: Lymphadenopathy Lungs: Normal Respiratory Effort, Rales (Mild bilateral basilar). No: Rhonchi, Rub, Wheezing Cardiovascular: Regular Rate, Regular Rhythm, No Murmurs. No: Gallops, Rubs GI/Abdominal Exam: Normal Bowel Sounds, Soft, Non-Tender, No Organomegaly, No Distention, No Abnormal Bruit, No Mass, Pelvis Stable, Other (Obese). No: Guarding (Female) Exam: Deferred Back Exam: Normal Inspection, Full Range of Motion. No: CVA Tenderness (L), CVA Tenderness (R), Muscle Spasm Extremities: Normal Inspection, Normal Range of Motion, Non-Tender, No Pedal Edema, Normal Capillary Refill. No: Mary's Sign Peripheral Pulses: 2+: Radial (L), Radial (R), Dorsalis Pedis (L), Dorsalis Pedis (R) Skin: Warm, Dry, Intact Neurological: No New Focal Deficit, Other (Negative Babinski's) Psy/Mental Status: Alert, Anxious (Borderline), Depressed (Mild to moderate), Suicidal Ideation. No: Agitated, Hallucinations, Withdrawal Symptoms - Problem List & Annotations (1) CHF (congestive heart failure) SNOMED Code(s): 56277401 Code(s): I50.9 - HEART FAILURE, UNSPECIFIED Status: Chronic Priority: Medium Current Visit: Yes Qualifiers: Heart failure type: unspecified Heart failure chronicity: acute Qualified Code(s): I50.9 - Heart failure, unspecified Annotation/Comment:: Echocardiogram conducted on 03/13/18 with results pending. Increase Lasix therapy with repeat blood work in the a.m. and change of her diet to fluid restricted. Note tachycardia with ambulation. Initiate low-dose beta neville therapy with caution secondary to her COPD. No chest pain or anginal type symptoms with negative workup for acute [place], however mild change in troponin I likely secondary to her CHF. Repeat EKG and chest x-ray in the a.m. (2) Heart disease SNOMED Code(s): 41304534 Code(s): I51.9 - HEART DISEASE, UNSPECIFIED Status: Chronic Priority: Medium Current Visit: Yes Annotation/Comment:: No recent anginal complaints as above with change in medical therapy with caution as above (3) D-dimer, elevated SNOMED Code(s): 706376730 Code(s): R79.89 - OTHER SPECIFIED ABNORMAL FINDINGS OF BLOOD CHEMISTRY Status: Acute Priority: High Current Visit: Yes Annotation/Comment:: Mild elevation of D-Dimer on admission with repeat evaluation tomorrow morning. CTA of the chest was negative, although evaluation of the bases was somewhat difficult. Continue low-dose Lovenox therapy for now. Venous Doppler studies of the lower extremities to be ordered. She has been active and is ambulating. (4) COPD (chronic obstructive pulmonary disease) SNOMED Code(s): 54194489 Code(s): J44.9 - CHRONIC OBSTRUCTIVE PULMONARY DISEASE, UNSPECIFIED Status : Chronic Priority: Medium Current Visit: Yes Qualifiers: COPD type: emphysema Emphysema type: panlobular Qualified Code(s): J43.1 - Panlobular emphysema Annotation/Comment:: Stable by history with current nebulizer therapy with only very occasional nonproductive cough and no evidence of acute infection. Initiate incentive spirometry. No recent fever, leukocytosis, etc. (5) Anemia SNOMED Code(s): 769866181 Code(s): D64.9 - ANEMIA, UNSPECIFIED Status: Acute Priority: Medium Current Visit: Yes Onset Date: 03/14/18 Qualifiers: Anemia type: unspecified type Qualified Code(s): D64.9 - Anemia, unspecified Annotation/Comment:: No development of some mild anemia today with hemoglobin of 10.9 in comparison to 12.6 on admission. No direct evidence of acute bleeding including GI bleed, etc. despite current Lovenox therapy, which will be continued for now. Repeat blood work in the a.m., including iron studies and additional Hemoccult ordered. (6) Hypothyroidism (acquired) SNOMED Code(s): 946221970 Code(s): E03.9 - HYPOTHYROIDISM, UNSPECIFIED Status: Chronic Priority: Medium Current Visit: Yes Annotation/Comment:: TSH on admission was somewhat decreased with free T3 and free T4 to be conducted in the a.m. secondary to patient's tachycardia. Patient's Synthroid supplementation will not be changed secondary to recently initiated magnesium oxide therapy, however , with repeat TSH recommended in 4 weeks (7) Hyperlipidemia SNOMED Code(s): 42647025 Code(s): E78.5 - HYPERLIPIDEMIA, UNSPECIFIED Status: Chronic Priority: Medium Current Visit: Yes Qualifiers: Hyperlipidemia type: unspecified Qualified Code(s): E78.5 - Hyperlipidemia , unspecified Annotation/Comment:: Not currently under therapy secondary to previous intolerance with statins. Note Obesity with weight loss and exercise in moderation advisable. Lipid panel and glycosylated hemoglobin in the a.m. (8) Hypomagnesemia SNOMED Code(s): 619097563 Code(s): E83.42 - HYPOMAGNESEMIA Status: Acute Priority: Medium Current Visit: Yes Annotation/Comment:: Need him oxide therapy initiated on admission, which should also be beneficial for her borderline constipation. Repeat blood work in the a.m.. Note mild hypocalcemia. (9) Muscle weakness SNOMED Code(s): 24603212 Code(s): M62.81 - MUSCLE WEAKNESS (GENERALIZED) Status: Chronic Priority : Medium Current Visit: Yes Annotation/Comment:: PT/OT did treat and evaluate the patient during this hospitalization. Deconditioning noted however patient does not qualify for swing bed. (10) Diabetes mellitus SNOMED Code(s): 10542711 Code(s): E11.9 - TYPE 2 DIABETES MELLITUS WITHOUT COMPLICATIONS Status: Chronic Priority: Medium Current Visit: Yes Annotation/Comment:: Diet- controlled with no current medical therapy. Continue Accu-Cheks, which have been stable. Glycosylated hemoglobin in the a.m. (11) HTN, Benign hypertension SNOMED Code(s): 87480733 Code(s): I10 - ESSENTIAL (PRIMARY) HYPERTENSION Status: Chronic Priority : Medium Current Visit: Yes Annotation/Comment:: Blood Pressures somewhat elevated during this hospitalization. Increase Lasix and start low-dose beta neville therapy as above. (12) Osteoarthritis SNOMED Code(s): 279791644 Code(s): M19.90 - UNSPECIFIED OSTEOARTHRITIS, UNSPECIFIED SITE Status: Chronic Priority: Medium Current Visit: Yes Onset Date: 01/04/14 Annotation/Comment:: Stable during this hospitalization (13) Renal insufficiency SNOMED Code(s): 846915054, 396431982 Code(s): N28.9 - DISORDER OF KIDNEY AND URETER, UNSPECIFIED Status: Chronic Priority: Medium Current Visit: Yes Annotation/Comment:: Stable during this hospitalization. Continue to observe her renal status closely especially in light of her Lasix therapy. 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 Her sister is living with her for the short-term as emotional support. Care management has been initiated to start home health and Meals on Wheels at discharge. Zoloft therapy increased during this hospitalization. Continue to observe closely by her regular providers. - Problem List Review Problem List Initiated/Reviewed/Updated: Yes - Assessment Assessment:: as above - Plan Plan:: as above. Anticipate 1-2 additional days of inpatient care while patient's multiple medical problems are evaluated as to how they may be contributing to patient's decline. Patient and family may need to consider care home facility placement, if patient is not able to take active interest in self care/ ADLs or is physically unable to perform self care safely.
[2018-03-14] MEDS ORDERED: Albuterol/Ipratropium 3.0-0.5 MG/3 ML Neb Soln NEB PRN (09:31)
[2018-03-14] MEDS ORDERED: Albuterol 0.083% 2.5 MG/3 ML Neb Soln INH PRN (10:00)
[2018-03-14] MEDS: Potassium Chloride 20 MEQ Tab.ER PO SCH ×2 (12:11→18:07)
[2018-03-14] MEDS: Albuterol/Ipratropium 3.0-0.5 MG/3 ML Neb Soln INH SCH ×3 (12:11→21:01)
[2018-03-14] MEDS: Atenolol 25 MG Tab PO SCH (12:12)
[2018-03-14] MEDS ORDERED: Calcium Carbonate 750 MG Tab.Chew PO SCH (20:00)
[2018-03-15] MEDS: Albuterol/Ipratropium 3.0-0.5 MG/3 ML Neb Soln INH SCH (04:19)
[2018-03-15] MEDS: Levothyroxine 112 MCG Tab PO SCH (07:46)
[2018-03-15] MEDS: Potassium Chloride 20 MEQ Tab.ER PO SCH (07:47)
[2018-03-15] MEDS: Aspirin 81 MG Tab.Chew PO SCH (07:47)
[2018-03-15] MEDS: Furosemide 20 MG/2 ML VIAL IVPUSH SCH (07:47)
[2018-03-15] MEDS: Enoxaparin 40 MG/0.4 ML Syringe SUBCUT SCH (07:47)
[2018-03-15] MEDS: Hydroxychloroquine 200 MG Tab PO SCH (07:48)
[2018-03-15] MEDS: Sodium Chloride 0.9% 10 ML Syringe FLUSH SCH (07:48)
[2018-03-15] MEDS: Magnesium Oxide 400 MG Tab PO SCH (07:48)
[2018-03-15] MEDS: Atenolol 25 MG Tab PO SCH (07:48)
[2018-03-15] MEDS: Budesonide 0.5 MG/2 ML Neb Susp INH SCH (07:48)
[2018-03-15] MEDS: Cholecalciferol (Vitamin D3) 1,000 Unit Tab PO SCH (07:49)
[2018-03-15 07:50] VITALS: BP 118/52
[2018-03-15] MEDS ORDERED: Sertraline 50 MG Tab PO SCH (08:00)
--- NOTE | 2018-03-15 08:31 | PCM.DCSUM1 ---
Discharge Summary - Hospital Course HPI Initial Comments: See emergency room note/admission H&P Brief History: See emergency room note/admission H&P Diagnosis: Stroke: Yes Modified Hoagland Scale: No Symptoms at All Modified Hoagland Scale Score: 0 - Discharge Data Discharge Date: 03/15/18 Discharge Disposition: DC/Tfer to [facility] [employer] [facility] Condition: Good - Discharge Diagnosis/Problem(s) (1) CHF (congestive heart failure) SNOMED Code(s): 14173094 ICD Code: I50.9 - HEART FAILURE, UNSPECIFIED Status: Chronic Priority: Medium Current Visit: Yes Problem Details: Echocardiogram was conducted on with results still pending at discharge. Increased Lasix therapy on day prior to discharge with some mild increase of her renal insufficiency, however significant clinical improvement, including in her BNP, etc.. Continue fluid restricted, 1500-calorie ADA, heart healthy, diverticulosis diet at discharge with weight loss in moderation advisable. Further cardiology workup and/or consultation depending on her new primary care provider, Tripp Newman M.D., at the [facility]. Note mild sinus tachycardia with ambulation was also present yesterday morning, however overall good response to low-dose Tenormin therapy, which was initiated yesterday morning. Further increase of this medication depending on her clinical course with caution secondary to her COPD. No chest pain or anginal type symptoms during this hospitalization with negative workup for acute TX, however mild change in troponin I likely secondary to her CHF, which is improved this morning. Qualifiers: Heart failure type: unspecified Heart failure chronicity: acute Qualified Code(s): I50.9 - Heart failure, unspecified (2) Heart disease SNOMED Code(s): 36269338 ICD Code: I51.9 - HEART DISEASE, UNSPECIFIED Status: Chronic Priority: Medium Current Visit: Yes Problem Details: No recent anginal complaints as above with change in medical therapy with caution as above. Note stable mild T- wave inversion in leads 1 and aVL during serial EKGs during this hospitalization with possible stable lateral wall cardiac ischemia (3) Tachycardia SNOMED Code(s): 9085650 ICD Code: R00.0 - TACHYCARDIA, UNSPECIFIED Status: Acute Priority: High Current Visit: Yes Onset Date: 03/12/18 Problem Details: Mild sinus tachycardia as above. Improved with the above therapy. Continue to observe closely by regular providers. (4) D-dimer, elevated SNOMED Code(s): 159463012 ICD Code: R79.89 - OTHER SPECIFIED ABNORMAL FINDINGS OF BLOOD CHEMISTRY Status: Acute Priority: High Current Visit: Yes Onset Date: 03/12/18 Problem Details: Mild elevation of D-Dimer on admission with normalization during this hospitalization with low-dose subcutaneous Lovenox therapy. Verbal report of the venous Doppler studies of the lower extremities yesterday was negative with final report still pending. CTA of the chest was negative, although evaluation of the bases was somewhat difficult. She has been active and is ambulating with a walker. (5) COPD (chronic obstructive pulmonary disease) SNOMED Code(s): 00791239 ICD Code: J44.9 - CHRONIC OBSTRUCTIVE PULMONARY DISEASE, UNSPECIFIED Status : Chronic Priority: Medium Current Visit: Yes Problem Details: She has been noncompliant with her inhaler therapy and does not have a nebulizer unit at home. Her nonproductive chronic cough and dyspnea with exertion has significantly improved with every 6 hours DuoNeb treatments with patient to continue twice a day nebulizer treatments every 4 hours when necessary after transfer to [facility]p today as below. No recent history of fever, WBC elevation, etc. with no evidence of acute infection. Initiated incentive spirometry during this hospitalization, which will also be continued at discharge. Qualifiers: COPD type: emphysema Emphysema type: panlobular Qualified Code(s): J43.1 - Panlobular emphysema (6) Anemia SNOMED Code(s): 004594954 ICD Code: D64.9 - ANEMIA, UNSPECIFIED Status: Acute Priority: Medium Current Visit: Yes Onset Date: 03/14/18 Problem Details: Note development of some mild anemia on 01/12 with stable hemoglobin today at 10.9 in comparison to 12.6 on admission. No direct evidence of acute bleeding, including GI bleed, etc. despite current Lovenox therapy, which was continued during this entire hospitalization. No bowel movement to this point with Hemoccult unable to be collected. Note development of some mild iron insufficiency with repeat TIBC panel recommended in 4 weeks after initiating iron supplementation at discharge. Qualifiers: Anemia type: iron deficiency Iron deficiency anemia type: other iron deficiency Qualified Code(s): D50.8 - Other iron deficiency anemias (7) Hypothyroidism (acquired) SNOMED Code(s): 066355675 ICD Code: E03.9 - HYPOTHYROIDISM, UNSPECIFIED Status: Chronic Priority: Medium Current Visit: Yes Problem Details: TSH on admission was somewhat decreased with free T3 results still pending, however free T4 was normal this morning. Patient's Synthroid supplementation was decreased on admission with no further decrease at this time secondary to recently initiated magnesium oxide and iron sulfate therapy, however, with repeat TSH recommended in 4 weeks. (8) Hyperlipidemia SNOMED Code(s): 34690779 ICD Code: E78.5 - HYPERLIPIDEMIA, UNSPECIFIED Status: Chronic Priority: Medium Current Visit: Yes Problem Details: Lipid panel this morning was relatively normal with only mildly increased LDL. Note current dietary therapy secondary to previous intolerance with statins. Note Obesity with weight loss and exercise in moderation advisable. Glycosylated hemoglobin during this hospitalization was normal at 5.5%. Qualifiers: Hyperlipidemia type: unspecified Qualified Code(s): E78.5 - Hyperlipidemia , unspecified (9) Hypomagnesemia SNOMED Code(s): 903065539 ICD Code: E83.42 - HYPOMAGNESEMIA Status: Acute Priority: Medium Current Visit: Yes Problem Details: Magnesium oxide therapy initiated on admission, which should also be beneficial for her borderline constipation. Magnesium level normal at discharge. Note previous mild hypocalcemia resolved with Tums therapy, which was initiated on 03/14. (10) Muscle weakness SNOMED Code(s): 35618053 ICD Code: M62.81 - MUSCLE WEAKNESS (GENERALIZED) Status: Chronic Priority : Medium Current Visit: Yes Problem Details: PT/OT did treat and evaluate the patient during this hospitalization. Deconditioning noted however patient does not qualify for swing bed. Various therapeutic options were discussed with the patient and her [id number] with patient to be transferred to [facility] for further PT/OT, strengthening, and medication adjustment. She has elected to change providers to Dr. Newman, who will assume the patient's care at [place]. (11) Diabetes mellitus SNOMED Code(s): 56488405 ICD Code: E11.9 - TYPE 2 DIABETES MELLITUS WITHOUT COMPLICATIONS Status: Chronic Priority: Medium Current Visit: Yes Problem Details: As above. Currently Diet-controlled with no current medical therapy. Accu-Cheks during this hospitalization have been stable with normal Glycosylated hemoglobin as above. (12) HTN, Benign hypertension SNOMED Code(s): 63496987 ICD Code: I10 - ESSENTIAL (PRIMARY) HYPERTENSION Status: Chronic Priority : Medium Current Visit: Yes Problem Details: Blood Pressures somewhat elevated during this hospitalization, however much improved with Lasix and Tenormin therapy as above. Note occasional nonsymptomatic borderline low blood pressures, however. Continue to observe closely at the [facility] as per discharge instructions. (13) Osteoarthritis SNOMED Code(s): 604378790 ICD Code: M19.90 - UNSPECIFIED OSTEOARTHRITIS, UNSPECIFIED SITE Status: Chronic Priority: Medium Current Visit: Yes Onset Date: 01/04/14 Problem Details: Stable during this hospitalization (14) Renal insufficiency SNOMED Code(s): 079988885, 626324546 ICD Code: N28.9 - DISORDER OF KIDNEY AND URETER, UNSPECIFIED Status: Chronic Priority: Medium Current Visit: Yes Problem Details: As above. Continue to observe her renal status closely especially in light of her Lasix therapy, which was produced at discharge. 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 Her sister is living with her for the short-term as emotional support. Care management was initiated in this hospitalization with patient and family electing for short-term usp placement as above. Strongly consider home health and Meals on Wheels at discharge from the usp. Zoloft therapy was increased during this hospitalization which the patient has tolerated well. Continue to observe closely by her regular providers. - Patient Summary/Data Operative Procedure(s) Performed: None Complications: None Consults: Consultations 03/12/18 21:33 OT Evaluation and Treatment [CONS] Routine PT Evaluation and Treatment [CONS] Routine 03/13/18 10:19 Consult to Dietary [Consult to Software Applications Developer] [CONS] Routine 03/13/18 18:53 Consult to Case Management/Pharmaceutical Assistant [CONS] Routine Labs Pending at D/C: 1. Final x-ray reports including chest x-rays from 03/15/18 2. Free T3 results from 03/15/18 3. Final echocardiogram report from /No echocardiogram results from 03/13/18 4. Final report of venous Doppler studies from 03/14/18 Recommended Follow-up Testing/Procedures: As per discharge instructions Planned Operative Procedure(s) after DC: As per discharge instructions Hospital Course: Patient was admitted to inpatient/acute care on telemetry for treatment of multiple disorders as above including CHF, nonspecific generalized weakness, and COPD exacerbation. Note multiple medication adjustments required during this hospitalization as above. PT, OT, and care coordination consultations were ordered. Patient responded well to above medical therapy with no further complications during this hospitalization. - Patient Instructions Diet: Fluid Restriction Fluid Restriction: Heart healthy, 1500-calorie ADA, diverticulosis Activity: As Tolerated (And as directed by PT/OT with strict walker use and strict fall precautions) Driving: Do Not Drive Showering/Bathing: May Shower Notify Provider of: Fever, Increased Pain, Nausea and/or Vomiting Other/Special Instructions: 1. Vital signs on a every shift basis 1 week with regular provider to be updated at that time concerning patient's status, vital signs, etc. 2. Followup with your regular provider in 7-10 days as directed for reevaluation and recommended CBC, comprehensive metabolic panel, BNP, troponin I, CPK, EKG, and chest x-ray. Bring these discharge instructions with you to that visit. 3. Recommend repeat TIBC panel and TSH in 4 weeks. 4. Further cardiac workup per discretion of regular provider with this to be discussed at follow-up visit. 5. Incentive spirometry after each nebulizer treatment and every 2 hours as needed. 6. PT and OT on admission. 7. Initiate other standard usp orders on admission. 8. Admit to usp with new primary care provider, Tripp Newman M.D., at the [facility] - Discharge Plan *PRESCRIPTION DRUG MONITORING PROGRAM REVIEWED*: Not Applicable *COPY OF PRESCRIPTION DRUG MONITORING REPORT IN PATIENT QUENTIN: Not Applicable Prescriptions/Med Rec: Albuterol/Ipratropium [DuoNeb 3.0-0.5 MG/3 ML] 3 ml NEB Q4HRRT PRN #60 neb PRN Reason: Dyspnea Albuterol/Ipratropium [DuoNeb 3.0-0.5 MG/3 ML] 3 ml INH BID #60 neb Atenolol [Tenormin] 25 mg PO DAILY #30 tablet Budesonide [Pulmicort] 0.5 mg INH BID #60 neb Calcium Carbonate [Tums Extra Strength] 1,500 mg PO BEDTIME #60 tab.chew Ferrous Sulfate 325 mg PO QPM #30 tablet Furosemide [Lasix] 20 mg PO DAILY #30 tab Hydroxychloroquine [Plaquenil] 200 mg PO DAILY #30 tablet Levothyroxine 112 mcg PO ACBREAKFAST #30 tablet Magnesium Oxide 400 mg PO BID #60 tablet Potassium Chloride [Klor-Con M20] 20 meq PO DAILY #30 tab.er Home Medications: Home Meds Cholecalciferol (Vitamin D3) [Vitamin D3] 2,000 unit PO DAILY #0 02/17/14 [Rx] Aspirin [Children's Aspirin] 81 mg PO DAILY 03/12/18 [History] Albuterol/Ipratropium [DuoNeb 3.0-0.5 MG/3 ML] 3 ml INH BID #60 neb 03/15/18 [Rx ] Albuterol/Ipratropium [DuoNeb 3.0-0.5 MG/3 ML] 3 ml NEB Q4HRRT PRN #60 neb 03/15 [Rx] Atenolol [Tenormin] 25 mg PO DAILY #30 tablet 03/15/18 [Rx] Budesonide [Pulmicort] 0.5 mg INH BID #60 neb 03/15/18 [Rx] Calcium Carbonate [Tums Extra Strength] 1,500 mg PO BEDTIME #60 tab.chew [Rx] Ferrous Sulfate 325 mg PO QPM #30 tablet 03/15/18 [Rx] Furosemide [Lasix] 20 mg PO DAILY #30 tab 03/15/18 [Rx] Hydroxychloroquine [Plaquenil] 200 mg PO DAILY #30 tablet 03/15/18 [Rx] Levothyroxine 112 mcg PO ACBREAKFAST #30 tablet 03/15/18 [Rx] Magnesium Oxide 400 mg PO BID #60 tablet 03/15/18 [Rx] Potassium Chloride [Klor-Con M20] 20 meq PO DAILY #30 tab.er 03/15/18 [Rx] Oxygen Therapy Mode: Room Air Patient Handouts: Furosemide tablets, Chronic Obstructive Pulmonary Disease, [id number], Enoxaparin injection, Heart Failure, [id number]-[id number] Forms: ED Department Discharge Referrals: Hines,Arlette Maria L, PA-C [Primary Care Provider] - - Discharge Summary/Plan Comment DC Time >30 min.: Yes (Coordination of care ) Discharge Summary/Plan Comment: As above. Extensive precautions were given to the patient and her daughter-in- law, Jie, who are in agreement with the treatment plan. See Patient Instructions for further treatment and plan. - General Info Date of Service: 03/15/18 Admission Dx/Problem (Free Text: 1. Tachycardia 2. COPD 3. D Dimer elevation 4. CHF Functional Status: Reports: Pain Controlled, Tolerating Diet, Ambulating, Urinating, Incentive Spirometry. Denies: New Symptoms Numeric/FACES Score: 0 - Review of Systems General: Reports: Weakness (Improved). Denies: Fatigue, Malaise, Chills, Night Sweats, Appetite (Adequate) HEENT: Reports: Glasses. Denies: Dysphasia, Ear Pain, Eye Pain, Headaches, Post Nasal Drip, Sinus Congestion, Sore Throat, Rhinitis, Visual Changes Pulmonary: Reports: Shortness of Breath (Improved). Denies: Pleuritic Chest Pain, Cough, Sputum, Hemoptysis, Wheezing Cardiovascular: Reports: No Symptoms, Dyspnea on Exertion (Improved). Denies: Chest Pain, Palpitations, Orthopnea, PND, Edema Gastrointestinal: Reports: Constipation (No bowel movement during this hospitalization). Denies: Abdominal Pain, Decreased Appetite, Diarrhea, Difficulty Swallowing, Flatus, Hematochezia, Melena, Nausea, Vomiting, Other Genitourinary: Reports: No Symptoms. Denies: Dysuria, Frequency, Burning, Pain , Urgency, Hematuria, Retention, Flank Pain Musculoskeletal: Reports: No Symptoms. Denies: Neck Pain, Shoulder Pain, Arm Pain, Back Pain, Leg Pain Skin: Reports: No Symptoms. Denies: Diaphoresis Neurological: Reports: Difficulty Walking (Walker use required), Weakness (As above). Denies: Confusion, Dizziness, Headache, Numbness, Tingling, Tremors, Trouble Speaking, Gait Disturbance Psychiatric: Reports: Depression (Improved), Anxiety (Improved). Denies: Agitation, Cravings, Hallucinations - Patient Data Vitals - Most Recent: Last Vital Signs Temp 36.1 C 03/14/18 19:41 Pulse 65 03/15/18 07:48 Resp 18 03/14/18 19:41 BP 118/52 L 03/15/18 07:48 Pulse Ox 97 03/14/18 19:41 Vital Signs - 24 hr 03/14/18 03/14/18 03/14/18 12:00 12:12 16:39 Temperature [ Oral] Temperature [ 36.7 C 36.9 C Temporal] Pulse, 78 Peripheral Pulse, 78 74 Peripheral [ Right Pulse Oximetry] Respiratory 20 18 Rate Blood Pressure 150/79 H Blood Pressure 150/79 H 117/58 L [Left Upper Arm ] O2 Sat by Pulse 98 99 Oximetry 03/14/18 03/15/18 03/15/18 19:41 06:00 07:48 Temperature [ 37.5 C Oral] Temperature [ 36.1 C Temporal] Pulse, 65 Peripheral Pulse, 78 65 Peripheral [ Right Pulse Oximetry] Respiratory 18 19 Rate Blood Pressure 118/52 L Blood Pressure 155/79 H 118/52 L [Left Upper Arm ] O2 Sat by Pulse 97 96 Oximetry Weight - Most Recent: 77.474 kg I&O - Last 24 hours: Intake & Output 03/14/18 03/15/18 03/15/18 22:59 06:59 14:59 Intake Total 680 100 Output Total 700 Balance -20 100 Imaging Impressions - Last 24 hrs: Heart monitor shows normal sinus rhythm with heart rate in the 70s with no ectopy or arrhythmia. Brief sinus tachycardia with ambulation prior to effectiveness of Tenormin yesterday morning Chest x-ray, PA and lateral, on 03/15/18 shows evidence of moderate COPD and pulmonary fibrotic changes with atelectasis and/or mild pleural effusions in the lower lobes bilaterally. No significant pulmonary infiltrates, pneumothorax , cardiomegaly, CHF, etc. Moderate osteoarthritic and osteoporotic changes in the thoracic spine. Echocardiogram results from 03/13/18 are still pending Preliminary verbal report of CTA of the chest on 03/12/18 shows no evidence of acute PE Preliminary verbal report from histotechnologist supervisorGladys, of venous Doppler studies of the lower extremities bilaterally on 03/14/18 shows no evidence of DVT Lab Results - Last 24 hrs: Laboratory Results - last 24 hr 03/14/18 03/15/18 03/15/18 Range/Units 16:44 06:58 06:58 WBC 6.1 (4.0-10.2) K/uL RBC 3.53 L (3.77-5.09) M/uL Hgb 10.9 L (11.7-15.5) g/dL Hct 32.5 L (34.0-46.0) % MCV 92.1 (84.0-98.0) fL MCH 30.9 (28.2-33.3) pg MCHC 33.5 (31.7-36.0) g/dL RDW 14.3 H (11.2-14.1) % Plt Count 302 (150-350) K/uL Neut % (Auto) 41.8 L (45.0-80.0) % Lymph % (Auto) 43.6 (10.0-50.0) % Rush % (Auto) 12.0 (2.0-14.0) % Eos % (Auto) 2.3 (0.0-5.0) % Baso % (Auto) 0.3 (0.0-2.0) % Neut # (Auto) 2.53 (1.40-7.00) K/uL Lymph # (Auto) 2.64 (0.50-3.50) K/uL Rush # (Auto) 0.73 (0.00-1.00) K/uL Eos # (Auto) 0.14 (0.00-0.50) K/uL Baso # (Auto) 0.02 (0.00-0.20) K/uL D-Dimer, Quantitative 133 (0-400) ng/mL Sodium (136-145) mmol/L Potassium (3.5-5.1) mmol/L Chloride (98-107) mmol/L Carbon Dioxide (21.0-32.0) mmol/L BUN (7-18) mg/dL Creatinine (0.51-1.17) mg/dL Est Cr Clr Drug Dosing mL/min Estimated GFR (MDRD) mL/min Glucose (74-106) mg/dL POC Glucose 105 (65-110) mg/dl Uric Acid (2.6-7.2) mg/dL Calcium (8.5-10.1) mg/dL Magnesium (1.8-2.4) mg/dL Iron (50-175) ug/dL TIBC (250-450) ug/dL % Saturation Ferritin (8-388) ng/mL Creatine Kinase (26-308) U/L Creatine Kinase Index (0.0-2.5) % CK-MB (CK-2) (0.00-3.60) ng/mL Troponin I (0.000-0.056) ng/mL NT-Pro-B Natriuret Pep (0-125) pg/mL Triglycerides (30-150) mg/dL Cholesterol (100-200) mg/dL LDL Cholesterol, Calc (0-100) mg/dL HDL Cholesterol (40-60) mg/dL Free T4 (0.76-1.46) ng/dL 03/15/18 03/15/18 03/15/18 Range/Units 06:58 06:58 07:10 WBC (4.0-10.2) K/uL RBC (3.77-5.09) M/uL Hgb (11.7-15.5) g/dL Hct (34.0-46.0) % MCV (84.0-98.0) fL MCH (28.2-33.3) pg MCHC (31.7-36.0) g/dL RDW (11.2-14.1) % Plt Count (150-350) K/uL Neut % (Auto) (45.0-80.0) % Lymph % (Auto) (10.0-50.0) % Rush % (Auto) (2.0-14.0) % Eos % (Auto) (0.0-5.0) % Baso % (Auto) (0.0-2.0) % Neut # (Auto) (1.40-7.00) K/uL Lymph # (Auto) (0.50-3.50) K/uL Rush # (Auto) (0.00-1.00) K/uL Eos # (Auto) (0.00-0.50) K/uL Baso # (Auto) (0.00-0.20) K/uL D-Dimer, Quantitative (0-400) ng/mL Sodium 140 (136-145) mmol/L Potassium 4.2 (3.5-5.1) mmol/L Chloride 103 (98-107) mmol/L Carbon Dioxide 29.8 (21.0-32.0) mmol/L BUN 16 (7-18) mg/dL Creatinine 1.45 H (0.51-1.17) mg/dL Est Cr Clr Drug Dosing 20.37 mL/min Estimated GFR (MDRD) 34 mL/min Glucose 81 (74-106) mg/dL POC Glucose 80 (65-110) mg/dl Uric Acid 7.0 (2.6-7.2) mg/dL Calcium 9.4 (8.5-10.1) mg/dL Magnesium 1.8 (1.8-2.4) mg/dL Iron 71 (50-175) ug/dL TIBC 231 L (250-450) ug/dL % Saturation 30.06845 Ferritin 199 (8-388) ng/mL Creatine Kinase 50 (26-308) U/L Creatine Kinase Index 1.2 (0.0-2.5) % CK-MB (CK-2) 0.60 (0.00-3.60) ng/mL Troponin I 0.006 (0.000-0.056) ng/mL NT-Pro-B Natriuret Pep 503 H (0-125) pg/mL Triglycerides 110 (30-150) mg/dL Cholesterol 191 (100-200) mg/dL LDL Cholesterol, Calc 125 H (0-100) mg/dL HDL Cholesterol 44 (40-60) mg/dL Free T4 1.26 (0.76-1.46) ng/dL Laboratory Tests 03/12/18 03/12/18 03/12/18 Range/Units 15:00 15:05 15:05 WBC 7.9 (4.0-10.2) K/uL RBC 4.09 (3.77-5.09) M/uL Hgb 12.6 (11.7-15.5) g/dL Hct 37.5 (34.0-46.0) % MCV 91.7 (84.0-98.0) fL MCH 30.8 (28.2-33.3) pg MCHC 33.6 (31.7-36.0) g/dL RDW 13.5 (11.2-14.1) % Plt Count 314 (150-350) K/uL Neut % (Auto) 77.0 (45.0-80.0) % Lymph % (Auto) 14.5 (10.0-50.0) % Rush % (Auto) 7.9 (2.0-14.0) % Eos % (Auto) 0.3 (0.0-5.0) % Baso % (Auto) 0.3 (0.0-2.0) % Neut # (Auto) 6.07 (1.40-7.00) K/uL Lymph # (Auto) 1.14 (0.50-3.50) K/uL Rush # (Auto) 0.62 (0.00-1.00) K/uL Eos # (Auto) 0.02 (0.00-0.50) K/uL Baso # (Auto) 0.02 (0.00-0.20) K/uL PT 11.4 (9.5-12.0) SEC INR 1.1 D-Dimer, Quantitative 449 H (0-400) ng/mL Sodium (136-145) mmol/L Potassium (3.5-5.1) mmol/L Chloride (98-107) mmol/L Carbon Dioxide (21.0-32.0) mmol/L BUN (7-18) mg/dL Creatinine (0.51-1.17) mg/dL Est Cr Clr Drug Dosing Estimated GFR (MDRD) mL/min Glucose (74-106) mg/dL POC Glucose (65-110) mg/dl Hemoglobin A1c (4.3-5.7) % Uric Acid (2.6-7.2) mg/dL Calcium (8.5-10.1) mg/dL Magnesium (1.8-2.4) mg/dL Iron (50-175) ug/dL TIBC (250-450) ug/dL % Saturation Ferritin (8-388) ng/mL Total Bilirubin (0.2-1.0) mg/dL AST (15-37) U/L ALT (12-78) U/L Alkaline Phosphatase (46-116) IU/L Creatine Kinase (26-308) U/L Creatine Kinase Index (0.0-2.5) % CK-MB (CK-2) (0.00-3.60) ng/mL Troponin I (0.000-0.056) ng/mL NT-Pro-B Natriuret Pep (0-125) pg/mL Total Protein (6.4-8.2) g/dL Albumin (3.4-5.0) g/dL Triglycerides (30-150) mg/dL Cholesterol (100-200) mg/dL LDL Cholesterol, Calc (0-100) mg/dL HDL Cholesterol (40-60) mg/dL Vitamin D 25-Hydroxy (30-100) ng/mL Free T4 (0.76-1.46) ng/dL TSH, Ultra Sensitive (0.358-3.740) mIU/mL Specimen Type Urine Color Urine Appearance Urine pH (5.0-9.0) Ur Specific [place] (1.005-1.030) Urine Protein (NEGATIVE) mg/dL Urine Glucose (UA) (NEGATIVE) mg/dL Urine Ketones (NEGATIVE) mg/dL Urine Occult Blood (NEGATIVE) Urine Nitrite (NEGATIVE) Urine Bilirubin (NEGATIVE) Urine Urobilinogen (0.2-1.0) E.U./dL Ur Leukocyte Esterase (NEGATIVE) Urine RBC /HPF Urine WBC /HPF Ur Epithelial Cells /LPF Urine Bacteria (NONE TO FEW) /HPF 03/12/18 03/12/18 03/12/18 Range/Units 15:05 15:15 20:33 WBC (4.0-10.2) K/uL RBC (3.77-5.09) M/uL Hgb (11.7-15.5) g/dL Hct (34.0-46.0) % MCV (84.0-98.0) fL MCH (28.2-33.3) pg MCHC (31.7-36.0) g/dL RDW (11.2-14.1) % Plt Count (150-350) K/uL Neut % (Auto) (45.0-80.0) % Lymph % (Auto) (10.0-50.0) % Rush % (Auto) (2.0-14.0) % Eos % (Auto) (0.0-5.0) % Baso % (Auto) (0.0-2.0) % Neut # (Auto) (1.40-7.00) K/uL Lymph # (Auto) (0.50-3.50) K/uL Rush # (Auto) (0.00-1.00) K/uL Eos # (Auto) (0.00-0.50) K/uL Baso # (Auto) (0.00-0.20) K/uL PT (9.5-12.0) SEC INR D-Dimer, Quantitative (0-400) ng/mL Sodium 140 (136-145) mmol/L Potassium 4.0 (3.5-5.1) mmol/L Chloride 104 (98-107) mmol/L Carbon Dioxide 26.6 (21.0-32.0) mmol/L BUN 17 (7-18) mg/dL Creatinine 1.24 H (0.51-1.17) mg/dL Est Cr Clr Drug Dosing TNP Estimated GFR (MDRD) 41 mL/min Glucose 122 H (74-106) mg/dL POC Glucose (65-110) mg/dl Hemoglobin A1c (4.3-5.7) % Uric Acid (2.6-7.2) mg/dL Calcium 8.4 L (8.5-10.1) mg/dL Magnesium 1.3 L (1.8-2.4) mg/dL Iron (50-175) ug/dL TIBC (250-450) ug/dL % Saturation Ferritin (8-388) ng/mL Total Bilirubin 0.2 (0.2-1.0) mg/dL AST 19 (15-37) U/L ALT 18 (12-78) U/L Alkaline Phosphatase 54 (46-116) IU/L Creatine Kinase 90 56 (26-308) U/L Creatine Kinase Index 1.2 1.8 (0.0-2.5) % CK-MB (CK-2) 1.10 1.00 (0.00-3.60) ng/mL Troponin I 0.001 0.001 (0.000-0.056) ng/mL NT-Pro-B Natriuret Pep 625 H (0-125) pg/mL Total Protein 6.7 (6.4-8.2) g/dL Albumin 3.2 L (3.4-5.0) g/dL Triglycerides (30-150) mg/dL Cholesterol (100-200) mg/dL LDL Cholesterol, Calc (0-100) mg/dL HDL Cholesterol (40-60) mg/dL Vitamin D 25-Hydroxy 54.4 (30-100) ng/mL Free T4 (0.76-1.46) ng/dL TSH, Ultra Sensitive 0.264 L (0.358-3.740) mIU/mL Specimen Type Urine Color Urine Appearance Urine pH (5.0-9.0) Ur Specific [place] (1.005-1.030) Urine Protein (NEGATIVE) mg/dL Urine Glucose (UA) (NEGATIVE) mg/dL Urine Ketones (NEGATIVE) mg/dL Urine Occult Blood (NEGATIVE) Urine Nitrite (NEGATIVE) Urine Bilirubin (NEGATIVE) Urine Urobilinogen (0.2-1.0) E.U./dL Ur Leukocyte Esterase (NEGATIVE) Urine RBC /HPF Urine WBC /HPF Ur Epithelial Cells /LPF Urine Bacteria (NONE TO FEW) /HPF 03/13/18 03/13/18 03/13/18 Range/Units 05:58 07:20 07:24 WBC (4.0-10.2) K/uL RBC (3.77-5.09) M/uL Hgb (11.7-15.5) g/dL Hct (34.0-46.0) % MCV (84.0-98.0) fL MCH (28.2-33.3) pg MCHC (31.7-36.0) g/dL RDW (11.2-14.1) % Plt Count (150-350) K/uL Neut % (Auto) (45.0-80.0) % Lymph % (Auto) (10.0-50.0) % Rush % (Auto) (2.0-14.0) % Eos % (Auto) (0.0-5.0) % Baso % (Auto) (0.0-2.0) % Neut # (Auto) (1.40-7.00) K/uL Lymph # (Auto) (0.50-3.50) K/uL Rush # (Auto) (0.00-1.00) K/uL Eos # (Auto) (0.00-0.50) K/uL Baso # (Auto) (0.00-0.20) K/uL PT (9.5-12.0) SEC INR D-Dimer, Quantitative (0-400) ng/mL Sodium (136-145) mmol/L Potassium (3.5-5.1) mmol/L Chloride (98-107) mmol/L Carbon Dioxide (21.0-32.0) mmol/L BUN (7-18) mg/dL Creatinine (0.51-1.17) mg/dL Est Cr Clr Drug Dosing Estimated GFR (MDRD) mL/min Glucose (74-106) mg/dL POC Glucose 87 (65-110) mg/dl Hemoglobin A1c (4.3-5.7) % Uric Acid (2.6-7.2) mg/dL Calcium (8.5-10.1) mg/dL Magnesium 1.8 (1.8-2.4) mg/dL Iron (50-175) ug/dL TIBC (250-450) ug/dL % Saturation Ferritin (8-388) ng/mL Total Bilirubin (0.2-1.0) mg/dL AST (15-37) U/L ALT (12-78) U/L Alkaline Phosphatase (46-116) IU/L Creatine Kinase 59 (26-308) U/L Creatine Kinase Index 1.5 (0.0-2.5) % CK-MB (CK-2) 0.90 (0.00-3.60) ng/mL Troponin I 0.011 (0.000-0.056) ng/mL NT-Pro-B Natriuret Pep 807 H (0-125) pg/mL Total Protein (6.4-8.2) g/dL Albumin (3.4-5.0) g/dL Triglycerides (30-150) mg/dL Cholesterol (100-200) mg/dL LDL Cholesterol, Calc (0-100) mg/dL HDL Cholesterol (40-60) mg/dL Vitamin D 25-Hydroxy (30-100) ng/mL Free T4 (0.76-1.46) ng/dL TSH, Ultra Sensitive (0.358-3.740) mIU/mL Specimen Type Urinblad Urine Color Yellow Urine Appearance Clear Urine pH 6.5 (5.0-9.0) Ur Specific [place] 1.015 (1.005-1.030) Urine Protein Negative (NEGATIVE) mg/dL Urine Glucose (UA) Negative (NEGATIVE) mg/dL Urine Ketones Negative (NEGATIVE) mg/dL Urine Occult Blood Small H (NEGATIVE) Urine Nitrite Negative (NEGATIVE) Urine Bilirubin Negative (NEGATIVE) Urine Urobilinogen 0.2 (0.2-1.0) E.U./dL Ur Leukocyte Esterase Negative (NEGATIVE) Urine RBC 10-20 H /HPF Urine WBC 0-5 /HPF Ur Epithelial Cells Few /LPF Urine Bacteria Rare (NONE TO FEW) /HPF 03/13/18 03/14/18 03/14/18 Range/Units 17:00 06:55 06:55 WBC 5.5 (4.0-10.2) K/uL RBC 3.51 L (3.77-5.09) M/uL Hgb 10.9 L D (11.7-15.5) g/dL Hct 32.4 L (34.0-46.0) % MCV 92.3 (84.0-98.0) fL MCH 31.1 (28.2-33.3) pg MCHC 33.6 (31.7-36.0) g/dL RDW 14.1 (11.2-14.1) % Plt Count 288 (150-350) K/uL Neut % (Auto) 46.0 (45.0-80.0) % Lymph % (Auto) 38.8 (10.0-50.0) % Rush % (Auto) 12.5 (2.0-14.0) % Eos % (Auto) 2.2 (0.0-5.0) % Baso % (Auto) 0.5 (0.0-2.0) % Neut # (Auto) 2.54 (1.40-7.00) K/uL Lymph # (Auto) 2.14 (0.50-3.50) K/uL Rush # (Auto) 0.69 (0.00-1.00) K/uL Eos # (Auto) 0.12 (0.00-0.50) K/uL Baso # (Auto) 0.03 (0.00-0.20) K/uL PT (9.5-12.0) SEC INR D-Dimer, Quantitative (0-400) ng/mL Sodium 143 (136-145) mmol/L Potassium 3.7 (3.5-5.1) mmol/L Chloride 106 (98-107) mmol/L Carbon Dioxide 28.2 (21.0-32.0) mmol/L BUN 15 (7-18) mg/dL Creatinine 1.24 H (0.51-1.17) mg/dL Est Cr Clr Drug Dosing 23.82 Estimated GFR (MDRD) 41 mL/min Glucose 82 (74-106) mg/dL POC Glucose 100 (65-110) mg/dl Hemoglobin A1c (4.3-5.7) % Uric Acid (2.6-7.2) mg/dL Calcium 8.1 L (8.5-10.1) mg/dL Magnesium 1.8 (1.8-2.4) mg/dL Iron (50-175) ug/dL TIBC (250-450) ug/dL % Saturation Ferritin (8-388) ng/mL Total Bilirubin 0.2 (0.2-1.0) mg/dL AST 11 L (15-37) U/L ALT 13 (12-78) U/L Alkaline Phosphatase 42 L (46-116) IU/L Creatine Kinase (26-308) U/L Creatine Kinase Index (0.0-2.5) % CK-MB (CK-2) (0.00-3.60) ng/mL Troponin I (0.000-0.056) ng/mL NT-Pro-B Natriuret Pep (0-125) pg/mL Total Protein 5.5 L (6.4-8.2) g/dL Albumin 2.6 L (3.4-5.0) g/dL Triglycerides (30-150) mg/dL Cholesterol (100-200) mg/dL LDL Cholesterol, Calc (0-100) mg/dL HDL Cholesterol (40-60) mg/dL Vitamin D 25-Hydroxy (30-100) ng/mL Free T4 (0.76-1.46) ng/dL TSH, Ultra Sensitive (0.358-3.740) mIU/mL Specimen Type Urine Color Urine Appearance Urine pH (5.0-9.0) Ur Specific [place] (1.005-1.030) Urine Protein (NEGATIVE) mg/dL Urine Glucose (UA) (NEGATIVE) mg/dL Urine Ketones (NEGATIVE) mg/dL Urine Occult Blood (NEGATIVE) Urine Nitrite (NEGATIVE) Urine Bilirubin (NEGATIVE) Urine Urobilinogen (0.2-1.0) E.U./dL Ur Leukocyte Esterase (NEGATIVE) Urine RBC /HPF Urine WBC /HPF Ur Epithelial Cells /LPF Urine Bacteria (NONE TO FEW) /HPF 03/14/18 03/14/18 03/14/18 Range/Units 06:55 06:55 07:38 WBC (4.0-10.2) K/uL RBC (3.77-5.09) M/uL Hgb (11.7-15.5) g/dL Hct (34.0-46.0) % MCV (84.0-98.0) fL MCH (28.2-33.3) pg MCHC (31.7-36.0) g/dL RDW (11.2-14.1) % Plt Count (150-350) K/uL Neut % (Auto) (45.0-80.0) % Lymph % (Auto) (10.0-50.0) % Rush % (Auto) (2.0-14.0) % Eos % (Auto) (0.0-5.0) % Baso % (Auto) (0.0-2.0) % Neut # (Auto) (1.40-7.00) K/uL Lymph # (Auto) (0.50-3.50) K/uL Rush # (Auto) (0.00-1.00) K/uL Eos # (Auto) (0.00-0.50) K/uL Baso # (Auto) (0.00-0.20) K/uL PT (9.5-12.0) SEC INR D-Dimer, Quantitative 173 (0-400) ng/mL Sodium (136-145) mmol/L Potassium (3.5-5.1) mmol/L Chloride (98-107) mmol/L Carbon Dioxide (21.0-32.0) mmol/L BUN (7-18) mg/dL Creatinine (0.51-1.17) mg/dL Est Cr Clr Drug Dosing Estimated GFR (MDRD) mL/min Glucose (74-106) mg/dL POC Glucose 90 (65-110) mg/dl Hemoglobin A1c 5.4 (4.3-5.7) % Uric Acid (2.6-7.2) mg/dL Calcium (8.5-10.1) mg/dL Magnesium (1.8-2.4) mg/dL Iron (50-175) ug/dL TIBC (250-450) ug/dL % Saturation Ferritin (8-388) ng/mL Total Bilirubin (0.2-1.0) mg/dL AST (15-37) U/L ALT (12-78) U/L Alkaline Phosphatase (46-116) IU/L Creatine Kinase (26-308) U/L Creatine Kinase Index (0.0-2.5) % CK-MB (CK-2) (0.00-3.60) ng/mL Troponin I (0.000-0.056) ng/mL NT-Pro-B Natriuret Pep (0-125) pg/mL Total Protein (6.4-8.2) g/dL Albumin (3.4-5.0) g/dL Triglycerides (30-150) mg/dL Cholesterol (100-200) mg/dL LDL Cholesterol, Calc (0-100) mg/dL HDL Cholesterol (40-60) mg/dL Vitamin D 25-Hydroxy (30-100) ng/mL Free T4 (0.76-1.46) ng/dL TSH, Ultra Sensitive (0.358-3.740) mIU/mL Specimen Type Urine Color Urine Appearance Urine pH (5.0-9.0) Ur Specific [place] (1.005-1.030) Urine Protein (NEGATIVE) mg/dL Urine Glucose (UA) (NEGATIVE) mg/dL Urine Ketones (NEGATIVE) mg/dL Urine Occult Blood (NEGATIVE) Urine Nitrite (NEGATIVE) Urine Bilirubin (NEGATIVE) Urine Urobilinogen (0.2-1.0) E.U./dL Ur Leukocyte Esterase (NEGATIVE) Urine RBC /HPF Urine WBC /HPF Ur Epithelial Cells /LPF Urine Bacteria (NONE TO FEW) /HPF 03/14/18 03/15/18 03/15/18 Range/Units 16:44 06:58 06:58 WBC 6.1 (4.0-10.2) K/uL RBC 3.53 L (3.77-5.09) M/uL Hgb 10.9 L (11.7-15.5) g/dL Hct 32.5 L (34.0-46.0) % MCV 92.1 (84.0-98.0) fL MCH 30.9 (28.2-33.3) pg MCHC 33.5 (31.7-36.0) g/dL RDW 14.3 H (11.2-14.1) % Plt Count 302 (150-350) K/uL Neut % (Auto) 41.8 L (45.0-80.0) % Lymph % (Auto) 43.6 (10.0-50.0) % Rush % (Auto) 12.0 (2.0-14.0) % Eos % (Auto) 2.3 (0.0-5.0) % Baso % (Auto) 0.3 (0.0-2.0) % Neut # (Auto) 2.53 (1.40-7.00) K/uL Lymph # (Auto) 2.64 (0.50-3.50) K/uL Rush # (Auto) 0.73 (0.00-1.00) K/uL Eos # (Auto) 0.14 (0.00-0.50) K/uL Baso # (Auto) 0.02 (0.00-0.20) K/uL PT (9.5-12.0) SEC INR D-Dimer, Quantitative 133 (0-400) ng/mL Sodium (136-145) mmol/L Potassium (3.5-5.1) mmol/L Chloride (98-107) mmol/L Carbon Dioxide (21.0-32.0) mmol/L BUN (7-18) mg/dL Creatinine (0.51-1.17) mg/dL Est Cr Clr Drug Dosing Estimated GFR (MDRD) mL/min Glucose (74-106) mg/dL POC Glucose 105 (65-110) mg/dl Hemoglobin A1c (4.3-5.7) % Uric Acid (2.6-7.2) mg/dL Calcium (8.5-10.1) mg/dL Magnesium (1.8-2.4) mg/dL Iron (50-175) ug/dL TIBC (250-450) ug/dL % Saturation Ferritin (8-388) ng/mL Total Bilirubin (0.2-1.0) mg/dL AST (15-37) U/L ALT (12-78) U/L Alkaline Phosphatase (46-116) IU/L Creatine Kinase (26-308) U/L Creatine Kinase Index (0.0-2.5) % CK-MB (CK-2) (0.00-3.60) ng/mL Troponin I (0.000-0.056) ng/mL NT-Pro-B Natriuret Pep (0-125) pg/mL Total Protein (6.4-8.2) g/dL Albumin (3.4-5.0) g/dL Triglycerides (30-150) mg/dL Cholesterol (100-200) mg/dL LDL Cholesterol, Calc (0-100) mg/dL HDL Cholesterol (40-60) mg/dL Vitamin D 25-Hydroxy (30-100) ng/mL Free T4 (0.76-1.46) ng/dL TSH, Ultra Sensitive (0.358-3.740) mIU/mL Specimen Type Urine Color Urine Appearance Urine pH (5.0-9.0) Ur Specific [place] (1.005-1.030) Urine Protein (NEGATIVE) mg/dL Urine Glucose (UA) (NEGATIVE) mg/dL Urine Ketones (NEGATIVE) mg/dL Urine Occult Blood (NEGATIVE) Urine Nitrite (NEGATIVE) Urine Bilirubin (NEGATIVE) Urine Urobilinogen (0.2-1.0) E.U./dL Ur Leukocyte Esterase (NEGATIVE) Urine RBC /HPF Urine WBC /HPF Ur Epithelial Cells /LPF Urine Bacteria (NONE TO FEW) /HPF 03/15/18 03/15/18 03/15/18 Range/Units 06:58 06:58 07:10 WBC (4.0-10.2) K/uL RBC (3.77-5.09) M/uL Hgb (11.7-15.5) g/dL Hct (34.0-46.0) % MCV (84.0-98.0) fL MCH (28.2-33.3) pg MCHC (31.7-36.0) g/dL RDW (11.2-14.1) % Plt Count (150-350) K/uL Neut % (Auto) (45.0-80.0) % Lymph % (Auto) (10.0-50.0) % Rush % (Auto) (2.0-14.0) % Eos % (Auto) (0.0-5.0) % Baso % (Auto) (0.0-2.0) % Neut # (Auto) (1.40-7.00) K/uL Lymph # (Auto) (0.50-3.50) K/uL Rush # (Auto) (0.00-1.00) K/uL Eos # (Auto) (0.00-0.50) K/uL Baso # (Auto) (0.00-0.20) K/uL PT (9.5-12.0) SEC INR D-Dimer, Quantitative (0-400) ng/mL Sodium 140 (136-145) mmol/L Potassium 4.2 (3.5-5.1) mmol/L Chloride 103 (98-107) mmol/L Carbon Dioxide 29.8 (21.0-32.0) mmol/L BUN 16 (7-18) mg/dL Creatinine 1.45 H (0.51-1.17) mg/dL Est Cr Clr Drug Dosing 20.37 Estimated GFR (MDRD) 34 mL/min Glucose 81 (74-106) mg/dL POC Glucose 80 (65-110) mg/dl Hemoglobin A1c (4.3-5.7) % Uric Acid 7.0 (2.6-7.2) mg/dL Calcium 9.4 (8.5-10.1) mg/dL Magnesium 1.8 (1.8-2.4) mg/dL Iron 71 (50-175) ug/dL TIBC 231 L (250-450) ug/dL % Saturation 30.74133 Ferritin 199 (8-388) ng/mL Total Bilirubin (0.2-1.0) mg/dL AST (15-37) U/L ALT (12-78) U/L Alkaline Phosphatase (46-116) IU/L Creatine Kinase 50 (26-308) U/L Creatine Kinase Index 1.2 (0.0-2.5) % CK-MB (CK-2) 0.60 (0.00-3.60) ng/mL Troponin I 0.006 (0.000-0.056) ng/mL NT-Pro-B Natriuret Pep 503 H (0-125) pg/mL Total Protein (6.4-8.2) g/dL Albumin (3.4-5.0) g/dL Triglycerides 110 (30-150) mg/dL Cholesterol 191 (100-200) mg/dL LDL Cholesterol, Calc 125 H (0-100) mg/dL HDL Cholesterol 44 (40-60) mg/dL Vitamin D 25-Hydroxy (30-100) ng/mL Free T4 1.26 (0.76-1.46) ng/dL TSH, Ultra Sensitive (0.358-3.740) mIU/mL Specimen Type Urine Color Urine Appearance Urine pH (5.0-9.0) Ur Specific [place] (1.005-1.030) Urine Protein (NEGATIVE) mg/dL Urine Glucose (UA) (NEGATIVE) mg/dL Urine Ketones (NEGATIVE) mg/dL Urine Occult Blood (NEGATIVE) Urine Nitrite (NEGATIVE) Urine Bilirubin (NEGATIVE) Urine Urobilinogen (0.2-1.0) E.U./dL Ur Leukocyte Esterase (NEGATIVE) Urine RBC /HPF Urine WBC /HPF Ur Epithelial Cells /LPF Urine Bacteria (NONE TO FEW) /HPF JOHN Results - Last 24 hrs: None Med Orders - Current: Current Medications Albuterol (Proventil Neb Soln) 2.5 mg INH Q2H PRN PRN Reason: SHORTNESS OF BREATH Albuterol/Ipratropium (Duoneb 3.0-0.5 Mg/3 Ml) 3 ml NEB Q4HRRT PRN PRN Reason: Dyspnea Albuterol/Ipratropium (Duoneb 3.0-0.5 Mg/3 Ml) 3 ml INH Q6HR [facility] Last Admin: 03/15/18 04:19 Dose: Not Given Aspirin (Aspirin) 81 mg PO DAILY [facility] Last Admin: 03/15/18 07:47 Dose: 81 mg Atenolol (Tenormin) 25 mg PO DAILY [facility] Last Admin: 03/15/18 07:48 Dose: 25 mg Budesonide (Pulmicort) 0.5 mg INH BID [facility] Last Admin: 03/15/18 07:48 Dose: 0.5 mg Calcium Carbonate/Glycine (Tums Extra Strength) 1,500 mg PO BEDTIME [facility] Last Admin: 03/14/18 21:01 Dose: 1,500 mg Cholecalciferol (Vitamin D3) 2,000 units PO DAILY [facility] Last Admin: 03/15/18 07:49 Dose: 2,000 units Enoxaparin Sodium (Lovenox) 40 mg SUBCUT DAILY [facility] Last Admin: 03/15/18 07:47 Dose: 40 mg Furosemide (Lasix) 20 mg IVPUSH BID [facility] Last Admin: 03/15/18 07:47 Dose: 20 mg Hydroxychloroquine Sulfate (Plaquenil) 200 mg PO DAILY [facility] Last Admin: 03/15/18 07:48 Dose: 200 mg Levothyroxine Sodium (Levothyroxine) 112 mcg PO ACBREAKFAST [facility] Last Admin: 03/15/18 07:46 Dose: 112 mcg Magnesium Oxide (Magnesium Oxide) 400 mg PO BID [facility] Last Admin: 03/15/18 07:48 Dose: 400 mg Ondansetron HCl (Zofran Odt) 4 mg PO Q4H PRN PRN Reason: Nausea/Vomiting Potassium Chloride (Klor-Con M20) 20 meq PO BID [facility] Last Admin: 03/15/18 07:47 Dose: 20 meq Sertraline HCl (Zoloft) 100 mg PO DAILY [facility] Last Admin: 03/15/18 07:50 Dose: 100 mg Sodium Chloride (Saline Flush) 10 ml FLUSH ASDIRECTED PRN PRN Reason: Keep Vein Open Last Admin: 03/14/18 18:08 Dose: 10 ml Sodium Chloride (Saline Flush) 10 ml FLUSH Q12HR [facility] Last Admin: 03/15/18 07:48 Dose: 10 ml Discontinued Medications Albuterol (Ventolin Hfa) 0 gm INH Q4HR PRN PRN Reason: Cough Albuterol/Ipratropium (Duoneb 3.0-0.5 Mg/3 Ml) 3 ml INH Q6HR PRN PRN Reason: Shortness of Breath Last Admin: 03/13/18 08:03 Dose: 3 ml Albuterol/Ipratropium (Combivent Respimat) 0 gm INH Q4H PRN PRN Reason: Shortness of Breath Furosemide (Lasix) 20 mg IVPUSH DAILY [facility] Last Admin: 03/14/18 08:12 Dose: 20 mg Sodium Chloride (Normal Saline) 500 mls @ 250 mls/hr IV ONETIME ONE Stop: 03/12/18 18:12 Last Admin: 03/12/18 17:12 Dose: 250 mls/hr Iopamidol (Isovue-370 (76%)) 100 ml IVPUSH ONETIME ONE Stop: 03/12/18 16:19 Last Admin: 03/12/18 17:11 Dose: 100 ml Magnesium Oxide (Magnesium Oxide) 500 mg PO DAILY [facility] Magnesium Sulfate/Dextrose (Magnesium 1 Gm In D5w 100 Ml) 1 gm IV NOW ONE Stop: 03/12/18 16:14 Last Admin: 03/12/18 16:52 Dose: 1 gm Sertraline HCl (Zoloft) 25 mg PO DAILY [facility] Last Admin: 03/13/18 08:01 Dose: 25 mg Sertraline HCl (Zoloft) 50 mg PO DAILY [facility] Last Admin: 03/14/18 08:12 Dose: 50 mg Trospium (Sanctura) 20 mg PO BID [facility] Last Admin: 03/14/18 18:06 Dose: 20 mg - Exam Quality Assessment: Reports: DVT Prophylaxis (Lovenox). Denies: Supplemental Oxygen, Central Line/PICC, Urine Catheter, Skin Breakdown, Restraints General: Reports: Alert, Oriented, Cooperative, No Acute Distress HEENT: Reports: Pupils Equal, Pupils Reactive, EOMI, Mucous Membr. Moist/[place], Other (Patient wearing glasses) Neck: Reports: Supple, Trachea Midline, No JVD, No Thyromegaly, Carotid Bruit ( Bilateral carotid bruitsmild). Denies: Lymphadenopathy Lungs: Reports: Normal Respiratory Effort, Rales (Mild bilateral basilar). Denies: Rhonchi, Rub, Wheezing Cardiovascular: Reports: Regular Rate, Regular Rhythm. Denies: Murmurs, Gallops , Rubs GI/Abdominal Exam: Normal Bowel Sounds, Soft, Non-Tender, No Organomegaly, No Distention, No Abnormal Bruit, No Mass, Pelvis Stable, Other (Obese). No: Guarding (Female) Exam: Deferred Rectal (Female) Exam: Deferred Back Exam: Reports: Normal Inspection, Full Range of Motion, Other (Kyphosis mild). Denies: CVA Tenderness (L), CVA Tenderness (R), Muscle Spasm Extremities: Normal Inspection, Normal Range of Motion, Non-Tender, No Pedal Edema, Normal Capillary Refill. No: Mary's Sign Skin: Reports: Warm, Dry, Intact. Denies: Ecchymosis Neurological: Reports: No New Focal Deficit, Other (No clinical orthostasis) Psy/Mental Status: Reports: Alert, Anxious (Mild), Depressed (Mild). Denies: Agitated, Hallucinations, Withdrawal Symptoms EKG INTERPRETATION EKG Date: 03/15/18 Time: 08:33 Rhythm: Other (Borderline bradycardia) Rate (Beats/Min): 58 Vincent: Normal (Neutral cardiac axis) P-Wave: Present QRS: Normal (0.09 seconds) ST-T: Other (T-wave inversion in leads aVL and 1) QT: Normal SC/PQ Interval: 0.15 seconds with pulmonary hypertension by EKG Comparison: No Change (03/13/18) EKG Interpretation Comments: 1. Borderline lateral wall cardiac ischemia 2. Sinus bradycardia 3. Pulmonary hypertension by EKG
--- NOTE | 2018-03-15 09:50 | PCM.SN ---
- Free Text/Narrative Note: Correction of discharge summary. No diagnosis of stroke
== END 2018-03-15 10:35 | DRG 293 ==
LOC: LL.ED 14:49 → LL.MS 20:18
PROVIDERS: ADMIT Emergency Medicine; ATTEND Family Medicine
DX: I11.0 Hypertensive heart disease with heart failure (principal); I13.0 Hypertensive heart and chronic kidney disease with heart failure and stage 1 through stage 4 chronic kidney disease, or unspecified chronic kidney disease; R07.9 Chest pain, unspecified; I50.9 Heart failure, unspecified; R79.89 Other specified abnormal findings of blood chemistry; J43.1 Panlobular emphysema; I10 Essential (primary) hypertension; J44.9 Chronic obstructive pulmonary disease, unspecified; D50.9 Iron deficiency anemia, unspecified; E03.9 Hypothyroidism, unspecified; M54.9 Dorsalgia, unspecified; E78.5 Hyperlipidemia, unspecified; E11.9 Type 2 diabetes mellitus without complications; E83.42 Hypomagnesemia; E88.09 Other disorders of plasma-protein metabolism, not elsewhere classified; M62.81 Muscle weakness (generalized); M19.90 Unspecified osteoarthritis, unspecified site; N28.9 Disorder of kidney and ureter, unspecified; F41.8 Other specified anxiety disorders; Z68.30 Body mass index [BMI] 30.0-30.9, adult; H54.7 Unspecified visual loss; R32 Unspecified urinary incontinence; E11.22 Type 2 diabetes mellitus with diabetic chronic kidney disease; N18.2 Chronic kidney disease, stage 2 (mild); G89.29 Other chronic pain; M54.42 Lumbago with sciatica, left side; M10.9 Gout, unspecified; M81.0 Age-related osteoporosis without current pathological fracture; F32.9 Major depressive disorder, single episode, unspecified; E66.9 Obesity, unspecified; Z68.38 Body mass index [BMI] 38.0-38.9, adult; Z74.09 Other reduced mobility; Z79.899 Other long term (current) drug therapy; Z91.14 Patient's other noncompliance with medication regimen; Z79.82 Long term (current) use of aspirin; Z88.0 Allergy status to penicillin; Z88.2 Allergy status to sulfonamides; Z88.8 Allergy status to other drugs, medicaments and biological substances; Z87.891 Personal history of nicotine dependence
CPT/HCPCS: 36415; 71046; 71275; 80053; 82306; 82550; 82553; 83735; 83880; 84443; 84484; 85025; 85379; 85610; 93005; 96361; 96365; 99285; J3475; J7040; Q9967; 80048; 80061; 81001; 82728; 82962; 83036; 83540; 83550; 84439; 84481; 84550; 93306; 93970; 94640; 97110-GP; 97161-GP; 97165-GO; 97530-GP; A9270-GY; J1650; J1940; J7620-GY

== ENCOUNTER 2019-03-06 12:08 | Emergency (ER) | payer MEDICARE, OTHER ==
[2019-03-06 12:29] VITALS: BP 126/50; PULSE 78
[2019-03-06 12:54] LABS: CHLORIDE,CL 104 mmol/L (98-107); SODIUM,NA 142 mmol/L (136-145)
[2019-03-06] MEDS ORDERED: cefTRIAXone 1 GM Vial IM ONE (13:03)
--- NOTE | 2019-03-06 13:13 | EDM.PDOC ---
ED HPI GENERAL MEDICAL PROBLEM - General Chief Complaint: Cardiovascular Problem Stated Complaint: cough, weakness, tired Time Seen by Provider: 03/06/19 12:20 Source of Information: Reports: Patient, Family History Limitations: Reports: No Limitations - History of Present Illness INITIAL COMMENTS - FREE TEXT/NARRATIVE: Pt with productive cough and decreased appetite No fever No N/V/D Onset: Gradual Duration: Day(s): Location: Reports: Chest Associated Symptoms: Reports: Cough - Related Data Allergies Allergy/AdvReac Type Severity Reaction Status Date / Time cerivastatin sodium Allergy Other Verified 03/06/19 12:10 [From [facility]] Penicillins Allergy unknown Verified 03/06/19 12:10 Sulfa (Sulfonamide Allergy Other Verified 03/06/19 12:10 Antibiotics) [place] [employer] Allergy Diarrhea Uncoded 03/06/19 12:10 Home Meds: Home Meds Albuterol/Ipratropium [DuoNeb 3.0-0.5 MG/3 ML] 3 ml INH BID #60 neb 03/15/18 [Rx ] Albuterol/Ipratropium [DuoNeb 3.0-0.5 MG/3 ML] 3 ml NEB Q4HRRT PRN #60 neb 03/15 [Rx] Budesonide [Pulmicort] 0.5 mg INH BID #60 neb 03/15/18 [Rx] Furosemide [Lasix] 20 mg PO DAILY #30 tab 03/15/18 [Rx] Hydroxychloroquine [Plaquenil] 200 mg PO DAILY #30 tablet 03/15/18 [Rx] Potassium Chloride [Klor-Con M20] 20 meq PO DAILY #30 tab.er 03/15/18 [Rx] atenoloL [Tenormin] 25 mg PO DAILY #30 tablet 03/15/18 [Rx] Calcium Citrate/Vitamin D3 [Citracal + D Maximum Caplet] 1 tab PO DAILY [History] Levothyroxine [Levothroid] 137 mcg PO DAILY 03/06/19 [History] Magnesium Oxide 500 mg PO BID 03/06/19 [History] Past Medical History HEENT History: Reports: Impaired Vision Other HEENT History: Wears glasses Cardiovascular History: Reports: Hypertension Respiratory History: Reports: COPD Gastrointestinal History: Reports: Other (See Below) Genitourinary History: Reports: Urinary Incontinence [employer] History: Reports: Musculoskeletal History: Reports: Back Pain, Chronic, Gout, Osteoarthritis, Osteoporosis Psychiatric History: Reports: Depression Endocrine/Metabolic History: Reports: Hypothyroidism, Obesity/BMI 30+ Hematologic History: Reports: Blood Transfusion(s) - Past Surgical History HEENT Surgical History: Reports: Oral Surgery GI Surgical History: Reports: Appendectomy, Cholecystectomy, Colonoscopy, EGD, Hernia Repair/Other Female Surgical History: Reports: D&C, Salpingo-Oophorectomy, Tubal Ligation Other Musculoskeletal Surgeries/Procedures:: Right knee injection 02/21 Social & Family History - Tobacco Use Smoking Status *Q: Former Smoker Used Tobacco, but Quit: Yes Month/Year Tobacco Last Used: 1959 - Caffeine Use Caffeine Use: Reports: Coffee, Soda - Living Situation & Occupation Living situation: Reports: , Alone Occupation: Other ED ROS GENERAL - Review of Systems Review Of Systems: See Below Constitutional: Reports: No Symptoms Respiratory: Reports: Shortness of Breath, Cough Cardiovascular: Reports: No Symptoms GI/Abdominal: Reports: No Symptoms ED EXAM, GENERAL - Physical Exam Exam: See Below Throat/Mouth: Normal Oropharynx Neck: Supple Respiratory/Chest: Decreased Breath Sounds GI/Abdominal: Non-Tender Extremities: Pedal Edema Course - Vital Signs Last Recorded V/S: Last Vital Signs Temp 37.0 C 03/06/19 12:10 Pulse 78 03/06/19 12:10 Resp 20 03/06/19 12:10 BP 126/50 L 03/06/19 12:10 Pulse Ox 96 03/06/19 12:10 - Orders/Labs/Meds Orders: Active Orders 24 hr Category Date Time Status Chest 2V [CR] Stat Exams 03/06/19 12:23 Taken Labs: Laboratory Tests 03/06/19 03/06/19 Range/Units 11:30 12:22 WBC 10.3 H (4.0-10.2) K/uL RBC 3.79 (3.77-5.09) M/uL Hgb 11.7 (11.7-15.5) g/dL Hct 35.8 (34.0-46.0) % MCV 94.5 (84.0-98.0) fL MCH 30.9 (28.2-33.3) pg MCHC 32.7 (31.7-36.0) g/dL RDW 13.3 (11.2-14.1) % Plt Count 286 (150-350) K/uL Neut % (Auto) 74.9 (45.0-80.0) % Lymph % (Auto) 12.1 (10.0-50.0) % [place] % (Auto) 12.1 (2.0-14.0) % Eos % (Auto) 0.7 (0.0-5.0) % Baso % (Auto) 0.2 (0.0-2.0) % Neut # (Auto) 7.71 H (1.40-7.00) K/uL Lymph # (Auto) 1.24 (0.50-3.50) K/uL [place] # (Auto) 1.25 H (0.00-1.00) K/uL Eos # (Auto) 0.07 (0.00-0.50) K/uL Baso # (Auto) 0.02 (0.00-0.20) K/uL Sodium 142 (136-145) mmol/L Potassium 3.7 (3.5-5.1) mmol/L Chloride 104 (98-107) mmol/L Carbon Dioxide 28.0 (21.0-32.0) mmol/L BUN 30 H (7-18) mg/dL Creatinine 1.58 H (0.51-1.17) mg/dL Est Cr Clr Drug Dosing TNP Estimated GFR (MDRD) 31 mL/min Glucose 123 H (74-106) mg/dL Calcium 8.9 (8.5-10.1) mg/dL Meds: Medications Discontinued Medications Generic Name Dose Route Start Last Admin Trade Name Freq PRN Reason Stop Dose Admin Ceftriaxone Sodium 1 gm 03/06/19 13:03 Rocephin IM 03/06/19 13:04 ONETIME ONE - Re-Assessments/Exams Free Text/Narrative Re-Assessment/Exam: 03/06/19 13:14 Pt given given Rocephin and Z-andres in ER Departure - Departure Time of Disposition: 13:30 Disposition: Home, Self-Care 01 Clinical Impression: Pneumonia Qualifiers: Pneumonia type: due to unspecified organism Laterality: unspecified laterality Lung location: unspecified part of lung Qualified Code(s): J18.9 - Pneumonia, unspecified organism Instructions: Community-Acquired Pneumonia, Adult, [id number] Referrals: Morena Maya [facility] [Primary Care Provider] - Additional Instructions: Follow up in clinic Sepsis Event Note - Evaluation Sepsis Screening Result: No Definite Risk - Focused Exam Vital Signs: Vital Signs Temp Pulse Resp BP Pulse Ox 03/06/19 12:10 37.0 C 78 20 126/50 L 96 Date Exam was Performed: 03/06/19 Time Exam was Performed: 13:05 - My Orders Last 24 Hours: My Active Orders 03/06/19 12:23 Chest 2V [CR] Stat - Assessment/Plan Last 24 Hours: My Active Orders 03/06/19 12:23 Chest 2V [CR] Stat
== END 2019-03-06 13:45 | disposition home or self-care (01) ==
LOC: LL.ED 12:08
DX: J18.9 Pneumonia, unspecified organism (principal); J44.9 Chronic obstructive pulmonary disease, unspecified; I10 Essential (primary) hypertension; E03.9 Hypothyroidism, unspecified; E66.9 Obesity, unspecified; Z68.30 Body mass index [BMI] 30.0-30.9, adult; Z88.0 Allergy status to penicillin; Z88.1 Allergy status to other antibiotic agents; Z79.899 Other long term (current) drug therapy
CPT/HCPCS: 36415; 71046; 80048; 85025; 96372; 99285-25; J0696; J2001

== ENCOUNTER 2020-08-14 17:29 | Emergency (ER) | payer MEDICARE, OTHER ==
[2020-08-14 17:37] VITALS: BP 152/63; PULSE 83
[2020-08-14] MEDS ORDERED: Famotidine 20 MG/2 ML SDV IVPUSH SCH (18:15)
[2020-08-14 18:42] LABS: CHLORIDE,CL 108 mmol/L (98-107); SODIUM,NA 144 mmol/L (136-145)
--- NOTE | 2020-08-14 23:48 | EDM.PDOC ---
ED HPI GENERAL MEDICAL PROBLEM - General Chief Complaint: Behavioral/Psych Stated Complaint: cognitive deficits, auditory hallucinations Time Seen by Provider: 08/14/20 17:31 Source of Information: Reports: Patient History Limitations: Reports: No Limitations - History of Present Illness INITIAL COMMENTS - FREE TEXT/NARRATIVE: Pt. presents to ER with daughter in law, stating that the pt. has been confused and experiencing auditory or visual hallucinations for the past 2 weeks. She lives in assisted living, and told family that there is a 'prostitution ring" happening in the facility. She has been confused about her past medical history of family history. Pt. was seen for this in the clinic and was started on Seroquel. She has only taken one dose. Pt. recently was diagnosed with a UTI but according to staff she only took half of her course of antibiotics. This was thought the be the cause of her confusion potentially. It was determined that she had only taken half her course of antibiotics after she came to ER. Pt. denies any cough. No chest congestion. No fever or chills. She denies any headache, neck pain, rashes, nausea, vomiting, or abdominal pain. She has not been experiencing any problems with speech/ambulation. No unilateral weakness, vision loss or change, facial droop, dysarthria, or other worrisome neurological findings. Daughter in law did contact ER, stating that she would be bringing the patient in. Currently the CT scanner is down until at least Monday. She was informed of this, stating that she "just wants to get patient checked out" and is aware that CT of the brain will not be able to be obtained. Family does not want the patient to be transferred to a facility for further workup. Family states that the symptoms are no worse today, but they are concerned that they are not improving. Onset Date: 07/24/20 Associated Symptoms: Reports: Confusion - Related Data Allergies Allergy/AdvReac Type Severity Reaction Status Date / Time cerivastatin sodium Allergy Other Verified 08/14/20 17:37 [From [place]] Penicillins Allergy unknown Verified 08/14/20 17:37 Sulfa (Sulfonamide Allergy Other Verified 08/14/20 17:37 Antibiotics) [place] [employer] Allergy Diarrhea Uncoded 08/14/20 17:37 Home Meds: Home Meds Albuterol/Ipratropium [DuoNeb 3.0-0.5 MG/3 ML] 3 ml NEB Q4HRRT PRN #60 neb 03/15/18 [Rx] Furosemide [Lasix] 20 mg PO DAILY #30 tab 03/15/18 [Rx] Hydroxychloroquine [Plaquenil] 200 mg PO DAILY #30 tablet 03/15/18 [Rx] atenoloL [Tenormin] 25 mg PO DAILY #30 tablet 03/15/18 [Rx] Albuterol/Ipratropium [DuoNeb 3.0-0.5 MG/3 ML] 3 ml INH BID PRN 08/14/20 [History] Budesonide [Pulmicort] 0.5 mg INH BID PRN 08/14/20 [History] Levothyroxine 125 mcg PO Q48H 08/14/20 [History] Levothyroxine Sodium [Levothyroxine] 112 mcg PO Q48H 08/14/20 [History] QUEtiapine [SEROquel] 25 mg PO DAILY 08/14/20 [History] Sertraline [Zoloft] 50 mg PO DAILY 08/14/20 [History] Past Medical History HEENT History: Reports: Impaired Vision Other HEENT History: Wears glasses Cardiovascular History: Reports: Hypertension Respiratory History: Reports: COPD Gastrointestinal History: Reports: Other (See Below) Genitourinary History: Reports: Urinary Incontinence THIRD HELPER History: Reports: Musculoskeletal History: Reports: Back Pain, Chronic, Gout, Osteoarthritis, Osteoporosis Psychiatric History: Reports: Depression Endocrine/Metabolic History: Reports: Hypothyroidism, Obesity/BMI 30+ Hematologic History: Reports: Blood Transfusion(s) - Past Surgical History HEENT Surgical History: Reports: Oral Surgery GI Surgical History: Reports: Appendectomy, Cholecystectomy, Colonoscopy, EGD, Hernia Repair/Other Female Surgical History: Reports: D&C, Salpingo-Oophorectomy, Tubal Ligation Other Musculoskeletal Surgeries/Procedures:: Right knee injection 02/21 Social & Family History - Tobacco Use Tobacco Use Status *Q: Former Tobacco User Years of Tobacco use: 2 Packs/Tins Daily: 0.5 Used Tobacco, but Quit: Yes Month/Year Tobacco Last Used: 1960 - Caffeine Use Caffeine Use: Reports: Coffee - Recreational Drug Use Recreational Drug Use: No - Living Situation & Occupation Living situation: Reports: , Alone Occupation: Other ED ROS GENERAL - Review of Systems Review Of Systems: Comprehensive ROS is negative, except as noted in HPI. Constitutional: Reports: No Symptoms HEENT: Reports: No Symptoms Respiratory: Reports: No Symptoms. Denies: Shortness of Breath Cardiovascular: Reports: No Symptoms. Denies: Chest Pain, Syncope Endocrine: Reports: No Symptoms GI/Abdominal: Reports: No Symptoms : Reports: No Symptoms Musculoskeletal: Reports: No Symptoms Skin: Reports: No Symptoms Neurological: Reports: Confusion Psychiatric: Reports: No Symptoms Hematologic/Lymphatic: Reports: No Symptoms Immunologic: Reports: No Symptoms ED EXAM, GENERAL - Physical Exam Exam: See Below Exam Limited By: No Limitations General Appearance: Alert, No Apparent Distress Eye Exam: Bilateral Eye: EOMI, Normal Fundi, Normal Inspection, PERRL Throat/Mouth: Normal Lips, Normal Teeth, Normal Gums, No Airway Compromise Head: Atraumatic, Normocephalic Neck: Normal Inspection, Supple, Non-Tender, Full Range of Motion Respiratory/Chest: No Respiratory Distress, Lungs Clear, No Accessory Muscle Use, Chest Non-Tender Cardiovascular: Normal Peripheral Pulses, Regular Rate, Rhythm, No Edema, No JVD Peripheral Pulses: 4+: Radial (L) GI/Abdominal: Soft, Non-Tender, No Distention, No Mass (Female) Exam: Deferred Rectal (Female) Exam: Deferred Back Exam: Normal Inspection, Full Range of Motion Extremities: Normal Inspection, Normal Range of Motion, Non-Tender, No Pedal Edema, Normal Capillary Refill Neurological: Alert, CN II-XII Intact, Confused (Unable to provide much her her ROS, relies on family. Follows commands. Is able to submit to neuro testing.), Other (No facial droop. No drift in upper or lower extremities. 5/5 strength in upper and lower extremities. No problems with speech.) Psychiatric: Flat Affect Skin Exam: Warm, Dry, Pallor #1 Interpretation Rhythm: NSR [place]: Normal P-Wave: Present QRS: Normal ST-T: Normal QT: Normal Course - Vital Signs Last Recorded V/S: Last Vital Signs Temp 36.9 C 08/14/20 17:31 Pulse 83 08/14/20 17:31 Resp 20 08/14/20 17:31 BP 152/63 H 08/14/20 17:31 Pulse Ox 98 08/14/20 17:31 - Orders/Labs/Meds Orders: Active Orders 24 hr Category Date Time Status Chest 1V Frontal [CR] Stat Exams 08/14/20 18:33 Taken Labs: Laboratory Tests 08/14/20 08/14/20 08/14/20 Range/Units 18:14 18:14 18:14 WBC 8.7 (4.0-10.2) K/uL RBC 4.26 (3.77-5.09) M/uL Hgb 12.8 (11.7-15.5) g/dL Hct 39.5 (34.0-46.0) % MCV 92.7 (84.0-98.0) fL MCH 30.0 (28.2-33.3) pg MCHC 32.4 (31.7-36.0) g/dL RDW 13.8 (11.2-14.1) % Plt Count 268 (150-350) K/uL Neut % (Auto) 53.7 (45.0-80.0) % Lymph % (Auto) 33.1 (10.0-50.0) % [place] % (Auto) 9.9 (2.0-14.0) % Eos % (Auto) 2.8 (0.0-5.0) % Baso % (Auto) 0.5 (0.0-2.0) % Neut # (Auto) 4.67 (1.40-7.00) K/uL Lymph # (Auto) 2.87 (0.50-3.50) K/uL [place] # (Auto) 0.86 (0.00-1.00) K/uL Eos # (Auto) 0.24 (0.00-0.50) K/uL Baso # (Auto) 0.04 (0.00-0.20) K/uL Sodium 144 (136-145) mmol/L Potassium 4.2 (3.5-5.1) mmol/L Chloride 108 H (98-107) mmol/L Carbon Dioxide 29.0 (21.0-32.0) mmol/L BUN 27 H (7-18) mg/dL Creatinine 1.46 H (0.51-1.17) mg/dL Est Cr Clr Drug Dosing 20.49 mL/min Estimated GFR (MDRD) 34 mL/min Glucose 96 (70-99) mg/dL Lactic Acid 1.2 (0.4-2.0) mmol/L Calcium 9.0 (8.5-10.1) mg/dL Phosphorus 3.9 (2.6-4.7) mg/dL Magnesium 1.7 L (1.8-2.4) mg/dL Total Bilirubin 0.3 (0.2-1.0) mg/dL AST 16 (15-37) U/L ALT 17 (12-78) U/L Alkaline Phosphatase 77 (46-116) IU/L C-Reactive Protein < 0.2 (<=0.9) mg/dL Total Protein 6.4 (6.4-8.2) g/dL Albumin 3.1 L (3.4-5.0) g/dL TSH, Ultra Sensitive 0.939 (0.358-3.740) mIU/mL Specimen Type Urine Color Urine Appearance Urine pH (5.0-9.0) Ur Specific [place] (1.005-1.030) Urine Protein (NEGATIVE) mg/dL Urine Glucose (UA) (NEGATIVE) mg/dL Urine Ketones (NEGATIVE) mg/dL Urine Occult Blood (NEGATIVE) Urine Nitrite (NEGATIVE) Urine Bilirubin (NEGATIVE) Urine Urobilinogen (0.2-1.0) E.U./dL Ur Leukocyte Esterase (NEGATIVE) Ethyl Alcohol 0.002 (0.000-0.080) g/dL 08/14/20 Range/Units 19:00 WBC (4.0-10.2) K/uL RBC (3.77-5.09) M/uL Hgb (11.7-15.5) g/dL Hct (34.0-46.0) % MCV (84.0-98.0) fL MCH (28.2-33.3) pg MCHC (31.7-36.0) g/dL RDW (11.2-14.1) % Plt Count (150-350) K/uL Neut % (Auto) (45.0-80.0) % Lymph % (Auto) (10.0-50.0) % [place] % (Auto) (2.0-14.0) % Eos % (Auto) (0.0-5.0) % Baso % (Auto) (0.0-2.0) % Neut # (Auto) (1.40-7.00) K/uL Lymph # (Auto) (0.50-3.50) K/uL [place] # (Auto) (0.00-1.00) K/uL Eos # (Auto) (0.00-0.50) K/uL Baso # (Auto) (0.00-0.20) K/uL Sodium (136-145) mmol/L Potassium (3.5-5.1) mmol/L Chloride (98-107) mmol/L Carbon Dioxide (21.0-32.0) mmol/L BUN (7-18) mg/dL Creatinine (0.51-1.17) mg/dL Est Cr Clr Drug Dosing mL/min Estimated GFR (MDRD) mL/min Glucose (70-99) mg/dL Lactic Acid (0.4-2.0) mmol/L Calcium (8.5-10.1) mg/dL Phosphorus (2.6-4.7) mg/dL Magnesium (1.8-2.4) mg/dL Total Bilirubin (0.2-1.0) mg/dL AST (15-37) U/L ALT (12-78) U/L Alkaline Phosphatase (46-116) IU/L C-Reactive Protein (<=0.9) mg/dL Total Protein (6.4-8.2) g/dL Albumin (3.4-5.0) g/dL TSH, Ultra Sensitive (0.358-3.740) mIU/mL Specimen Type [place] Urine Color Yellow Urine Appearance Clear Urine pH 5.0 (5.0-9.0) Ur Specific [place] 1.020 (1.005-1.030) Urine Protein Negative (NEGATIVE) mg/dL Urine Glucose (UA) Negative (NEGATIVE) mg/dL Urine Ketones Negative (NEGATIVE) mg/dL Urine Occult Blood Negative (NEGATIVE) Urine Nitrite Negative (NEGATIVE) Urine Bilirubin Negative (NEGATIVE) Urine Urobilinogen 0.2 (0.2-1.0) E.U./dL Ur Leukocyte Esterase Negative (NEGATIVE) Ethyl Alcohol (0.000-0.080) g/dL Meds: Medications Discontinued Medications Generic Name Dose Route Start Last Admin Trade Name Freq PRN Reason Stop Dose Admin Famotidine 20 mg 08/14/20 18:15 Famotidine 20 Mg/2 Ml Sdv IVPUSH BID CLAU - Radiology Interpretation Free Text/Narrative:: No obvious pathology noted on chest x-ray. Departure - Departure Time of Disposition: 19:45 Disposition: DC/Tfer to [facility] Clinical Impression: Hallucinations, Confusion - Discharge Information Referrals: PCP,Unknown [Primary Care Provider] - Forms: ED Department Discharge Additional Instructions: Work-up today was incomplete as no CT was performed. I advise follow-up for that FADI. If she has worsening symptoms or signs of stroke (trouble walking, speaking, etc) I would take her to facility with CT imaging available. recheck in clinic in 5-7 days, sooner if not improving. Sepsis Event Note (ED) - Evaluation Sepsis Screening Result: No Definite Risk - Focused Exam Vital Signs: Vital Signs Temp Pulse Resp BP Pulse Ox 08/14/20 17:31 36.9 C 83 20 152/63 H 98 - Problem List Review Problem List Initiated/Reviewed/Updated: Yes - My Orders Last 24 Hours: My Active Orders 08/14/20 18:33 Chest 1V Frontal [CR] Stat - Assessment/Plan Last 24 Hours: My Active Orders 08/14/20 18:33 Chest 1V Frontal [CR] Stat Plan: Work-up today was incomplete as no CT was performed. I advise follow-up for that FADI. If she has worsening symptoms or signs of stroke (trouble walking, speaking, etc) I would take her to facility with CT imaging available. recheck in clinic in 5-7 days, sooner if not improving.
== END 2020-08-14 19:40 | disposition home or self-care (01) ==
LOC: LL.ED 17:29
DX: R41.0 Disorientation, unspecified (principal); R44.3 Hallucinations, unspecified; I10 Essential (primary) hypertension; J44.9 Chronic obstructive pulmonary disease, unspecified; E03.9 Hypothyroidism, unspecified; E66.9 Obesity, unspecified; Z68.30 Body mass index [BMI] 30.0-30.9, adult; Z87.891 Personal history of nicotine dependence; Z88.2 Allergy status to sulfonamides; Z88.0 Allergy status to penicillin; Z91.018 Allergy to other foods; Z88.8 Allergy status to other drugs, medicaments and biological substances
CPT/HCPCS: 36415; 71045; 80053; 80307; 81003; 83605; 83735; 84100; 84443; 85025; 86140; 93005; 93010; 99284; 99285-25

== ENCOUNTER 2021-04-05 15:10 | Emergency (ER) | payer MEDICARE, OTHER ==
[2021-04-05 15:15] VITALS: BP 144/60; PULSE 62
[2021-04-05] MEDS ORDERED: Sodium Chloride 0.9% 10 ML Syringe FLUSH PRN (15:21)
[2021-04-05] MEDS: Sodium Chloride 0.9% 500 ML IV SCH (16:24)
[2021-04-05 16:27] LABS: ANION GAP 9.9 meq/L (7-15); CHLORIDE,CL 107 mmol/L (98-107); SODIUM,NA 144 mmol/L (136-145)
== END 2021-04-05 18:35 | disposition swing bed (61) ==
LOC: LL.ED 15:10
DX: U07.1 COVID-19 (principal); I10 Essential (primary) hypertension; J44.9 Chronic obstructive pulmonary disease, unspecified; M10.9 Gout, unspecified; E03.9 Hypothyroidism, unspecified; E66.9 Obesity, unspecified; Z88.8 Allergy status to other drugs, medicaments and biological substances; Z88.0 Allergy status to penicillin; Z91.011 Allergy to milk products; Z88.2 Allergy status to sulfonamides; Z91.018 Allergy to other foods; Z88.1 Allergy status to other antibiotic agents; Z79.899 Other long term (current) drug therapy
CPT/HCPCS: 36415; 71045; 80053; 83605; 83735; 83880; 84443; 85025; 85379; 99284; 99285-25; J7040

== ENCOUNTER 2021-04-05 17:43 | Inpatient (IN) | payer MEDICARE, OTHER ==
[2021-04-05] MEDS ORDERED: Albuterol/Ipratropium 3.0-0.5 MG/3 ML Neb Soln INH PRN ×2 (22:06→22:36)
[2021-04-05] MEDS ORDERED: Menthol/Methyl Salicylate 85 GM Tube TOP PRN (22:06)
[2021-04-05] MEDS ORDERED: Non-Formulary Medication 1 Each (Levothyroxine [Levothyroxine] 125 MCG Tablet) PO SCH (22:15)
[2021-04-06] MEDS: Acetaminophen 325 MG Tab PO PRN (04:00)
[2021-04-06] MEDS ORDERED: Furosemide 20 MG Tab PO SCH ×2 (08:00)
[2021-04-06] MEDS ORDERED: Enoxaparin 30 MG/0.3 ML Syringe SUBCUT SCH (08:00)
[2021-04-06] MEDS ORDERED: Hydroxychloroquine 200 MG Tab PO SCH (08:00)
[2021-04-06] MEDS ORDERED: Atenolol 25 MG Tab PO SCH (08:00)
[2021-04-06] MEDS: Sertraline 50 MG Tab PO SCH (12:05)
[2021-04-06] MEDS: Hydroxychloroquine 200 MG Tab PO SCH (12:06)
[2021-04-06] MEDS: Furosemide 20 MG Tab PO SCH (12:06)
[2021-04-06] MEDS: Levothyroxine 112 MCG Tab PO SCH (12:06)
[2021-04-06] MEDS: Atenolol 25 MG Tab PO SCH (12:07)
[2021-04-06] MEDS: QUEtiapine 25 MG Tab PO SCH ×2 (12:11→19:51)
[2021-04-06] MEDS: Acetaminophen 650 MG Tab.ER PO PRN (19:49)
[2021-04-07] MEDS: QUEtiapine 25 MG Tab PO SCH ×2 (11:36→19:55)
[2021-04-07] MEDS: Levothyroxine 112 MCG Tab PO SCH (11:37)
[2021-04-07] MEDS: Sertraline 50 MG Tab PO SCH (11:37)
[2021-04-07] MEDS: Enoxaparin 30 MG/0.3 ML Syringe SUBCUT SCH (11:37)
[2021-04-07] MEDS: Atenolol 25 MG Tab PO SCH (11:38)
[2021-04-07] MEDS: Hydroxychloroquine 200 MG Tab PO SCH (11:38)
[2021-04-07] MEDS: Furosemide 20 MG Tab PO SCH (11:38)
[2021-04-07] MEDS: Acetaminophen 650 MG Tab.ER PO PRN (16:31)
[2021-04-07] MEDS: Acetaminophen 325 MG Tab PO PRN (20:11)
[2021-04-08] MEDS: Enoxaparin 30 MG/0.3 ML Syringe SUBCUT SCH (11:33)
[2021-04-08] MEDS: Hydroxychloroquine 200 MG Tab PO SCH (11:33)
[2021-04-08] MEDS: Atenolol 25 MG Tab PO SCH (11:33)
[2021-04-08] MEDS: Levothyroxine 112 MCG Tab PO SCH (11:34)
[2021-04-08] MEDS: Sertraline 50 MG Tab PO SCH (11:34)
[2021-04-08] MEDS: QUEtiapine 25 MG Tab PO SCH ×2 (11:34→19:49)
[2021-04-08] MEDS: Furosemide 20 MG Tab PO SCH (11:34)
[2021-04-08] MEDS: Acetaminophen 650 MG Tab.ER PO PRN (19:49)
[2021-04-08] MEDS: Menthol/Methyl Salicylate 85 GM Tube TOP PRN (21:17)
[2021-04-09] MEDS: Sertraline 50 MG Tab PO SCH (12:58)
[2021-04-09] MEDS: Atenolol 25 MG Tab PO SCH (12:58)
[2021-04-09] MEDS: Furosemide 20 MG Tab PO SCH (12:59)
[2021-04-09] MEDS: QUEtiapine 25 MG Tab PO SCH ×2 (12:59→19:24)
[2021-04-09] MEDS: Levothyroxine 112 MCG Tab PO SCH (12:59)
[2021-04-09] MEDS: Hydroxychloroquine 200 MG Tab PO SCH (13:00)
[2021-04-09] MEDS: Enoxaparin 30 MG/0.3 ML Syringe SUBCUT SCH (13:01)
[2021-04-09] MEDS: Acetaminophen 650 MG Tab.ER PO PRN (19:23)
[2021-04-09] MEDS: Menthol/Methyl Salicylate 85 GM Tube TOP PRN (22:40)
[2021-04-10] MEDS: Enoxaparin 30 MG/0.3 ML Syringe SUBCUT SCH (11:52)
[2021-04-10] MEDS: Atenolol 25 MG Tab PO SCH (11:53)
[2021-04-10] MEDS: QUEtiapine 25 MG Tab PO SCH ×2 (11:53→19:40)
[2021-04-10] MEDS: Furosemide 20 MG Tab PO SCH (11:53)
[2021-04-10] MEDS: Sertraline 50 MG Tab PO SCH (11:53)
[2021-04-10] MEDS: Hydroxychloroquine 200 MG Tab PO SCH (11:54)
[2021-04-10] MEDS: Levothyroxine 112 MCG Tab PO SCH (11:54)
[2021-04-10] MEDS: Acetaminophen 650 MG Tab.ER PO PRN (19:40)
[2021-04-10] MEDS: Menthol/Methyl Salicylate 85 GM Tube TOP PRN (19:41)
[2021-04-11] MEDS: QUEtiapine 25 MG Tab PO SCH ×2 (12:38→19:34)
[2021-04-11] MEDS: Sertraline 50 MG Tab PO SCH (12:38)
[2021-04-11] MEDS: Furosemide 20 MG Tab PO SCH (12:38)
[2021-04-11] MEDS: Atenolol 25 MG Tab PO SCH (12:38)
[2021-04-11] MEDS: Enoxaparin 30 MG/0.3 ML Syringe SUBCUT SCH (12:39)
[2021-04-11] MEDS: Levothyroxine 112 MCG Tab PO SCH (12:39)
[2021-04-11] MEDS: Hydroxychloroquine 200 MG Tab PO SCH (12:40)
[2021-04-11] MEDS: Acetaminophen 650 MG Tab.ER PO PRN (19:33)
[2021-04-11] MEDS: Menthol/Methyl Salicylate 85 GM Tube TOP PRN (19:34)
[2021-04-12] MEDS: Enoxaparin 30 MG/0.3 ML Syringe SUBCUT SCH (11:11)
[2021-04-12] MEDS: QUEtiapine 25 MG Tab PO SCH (11:11)
[2021-04-12] MEDS: Furosemide 20 MG Tab PO SCH (11:12)
[2021-04-12] MEDS: Levothyroxine 112 MCG Tab PO SCH (11:12)
[2021-04-12] MEDS: Hydroxychloroquine 200 MG Tab PO SCH (11:12)
[2021-04-12] MEDS: Atenolol 25 MG Tab PO SCH (11:13)
[2021-04-12] MEDS: Sertraline 50 MG Tab PO SCH (11:13)
[2021-04-12 11:16] VITALS: BP 117/55; PULSE 61
== END 2021-04-12 12:35 | DRG 948 ==
LOC: UNDOADMIN 17:43 → LL.MS 17:43
PROVIDERS: ADMIT Emergency Medicine; ATTEND Emergency Medicine
DX: R53.1 Weakness (principal); I13.0 Hypertensive heart and chronic kidney disease with heart failure and stage 1 through stage 4 chronic kidney disease, or unspecified chronic kidney disease; H54.7 Unspecified visual loss; J44.9 Chronic obstructive pulmonary disease, unspecified; M19.90 Unspecified osteoarthritis, unspecified site; M81.0 Age-related osteoporosis without current pathological fracture; E03.9 Hypothyroidism, unspecified; E66.9 Obesity, unspecified; Z96.659 Presence of unspecified artificial knee joint; R32 Unspecified urinary incontinence; I50.9 Heart failure, unspecified; N18.9 Chronic kidney disease, unspecified; F03.90 Unspecified dementia, unspecified severity, without behavioral disturbance, psychotic disturbance, mood disturbance, and anxiety; U09.9 Post COVID-19 condition, unspecified; Z88.0 Allergy status to penicillin; Z88.2 Allergy status to sulfonamides; Z91.011 Allergy to milk products; Z88.8 Allergy status to other drugs, medicaments and biological substances; Z90.49 Acquired absence of other specified parts of digestive tract; Z79.890 Hormone replacement therapy; Z79.899 Other long term (current) drug therapy; Z68.30 Body mass index [BMI] 30.0-30.9, adult
CPT/HCPCS: 97162-GP; 97166-GO; 97530-GP; A9270-GY; J1650